=== PATIENT | female | born 1995 | race Hispanic/Latino ===

== ENCOUNTER 2023-05-20 07:27 | Emergency (ER) | payer OTHER ==
--- OUTSIDE RECORDS SUMMARY | 2023-05-20 07:37 | XMS REPORT | Continuity of Care Document ---
:1995 Author Organization [facility] t Address [address] [facility] [address] [place] [address] Care Team Providers Name Role Phone Pcp, Patient Does Not Have A Primary Care Physician +[phone] 00-0000 YRN SIMMONS Attending Clinician Unavailable Krystyna Vega RN Attending Clinician Unavailable Dalia Barbosa NP Attending Clinician Yrn Simmons MD Attending Clinician DALIA BARBOSA Attending Clinician Unavailable Doctor Unassigned, [facility] Attending Clinician Unavailable Yashira Ramires MD Attending Clinician Pob, [facility] Main Attending Clinician Unavailable 1, Lkj Nst Room Attending Clinician Unavailable Room, [facility] Nst Attending Clinician Unavailable Rahul Begum MD Attending Clinician RAHUL BEGUM Attending Clinician Unavailable RAHUL BEGUM Attending Clinician Unavailable Ultrasound, [facility] Attending Clinician Unavailable Chary Urban MD Attending Clinician CHARY URBAN Attending Clinician Unavailable Ultrasound, Sanam Quintero Attending Clinician Unavailable Inocencio Gtz DO Attending Clinician Riana Davalos RN Attending Clinician Unavailable Estela MARTINEZ Attending Clinician Unavailable Yrn Shaw MD Attending Clinician Mala PAC, K Keren Attending Clinician Manjula SOUZA, Pratima Attending Clinician Unavailable Roney Waggoner MD Attending Clinician RONEY WAGGONER Attending Clinician Unavailable Nurse, Ti[facility] Attending Clinician Unavailable 2, [facility] Attending Clinician Unavailable PREETI HARPER Attending Clinician Unavailable Preeti Hernandez Attending Clinician Bhavesh Young DO Attending Clinician [facility] Resident Attending Clinician Unavailable Chayo Dwyer MD Attending Clinician KHOI KAPOOR Attending Clinician Unavailable Mathew Welch Attending Clinician MATHEW SHIRLEY Attending Clinician Unavailable YRN SIMMONS Admitting Clinician Unavailable Yrn Simmons MD Admitting Clinician Payers Payer Name Policy Type Policy Number Effective Date Expiration Date S ource Problems Condition Condition Condition Status Onset Resolution Last Treating Co mments Source Name Details Category Date Date Treatment Clinician Date Current Current Disease Active Univers 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 00 Medical depressive depressive Br anch disorder disorder without without prior prior episode episode Liveborn Liveborn Disease Active Unive rs , of infant, of 1-05 [place] , , [place] born in born in [facility] by by delivery delivery Anemia, Anemia, Disease Active Univers antepartum antepartum 1-04 it y of , third , third 00:00: [place] trimester trimester 00 Medi radha [place] [facility] test Lab test Disease Active Unive rs positive positive 1-04 ity of for for 00:00: [place] detection detection 00 Medi radha of [facility] COVID-19 COVID-19 virus virus Excessive Excessive Disease Active Uni vers 1-04 ity of growth growth 00:00: [place] affecting affecting 00 Medi radha management management Br anch of of in third in third trimester trimester 35 weeks 35 weeks Disease Active 2021-11 Unive rs gestation gestation 2-19 ity of of of 00:00: [place] 00 [facility] 38 weeks 38 weeks Disease Active 2021-11 Unive rs gestation gestation 2-19 ity of of of 00:00: [place] 00 [facility] Eng[place] Eng[place] Disease Active 2021-11 U nivers t of t of 2-16 ity of breast, breast, 00:00: [place] antepartum antepartum 00 Me dical Branch Genital Genital Disease Active 2021-11 Univers herpes herpes 2-06 ity of simplex simplex 00:00: [place] virus virus 00 [facility] (HSV) (HSV) Branch infection infection in mother in mother affecting affecting 33 weeks 33 weeks Disease Active 2021-11 Unive rs gestation gestation 2-06 ity of of of 00:00: [place] 00 [facility] Dysuria Dysuria Disease Active 2021-11 Univers 0-07 ity of 00:00: [place] 00 [facility] Branch Vaginal Vaginal Disease Active 2021-11 Univers spotting spotting 0-07 ity of 00:00: [place] 00 Medical Branch Back pain Back pain Disease Active 2021-11 Uni vers affecting affecting 0-07 ity of , , [place]:00[place] antepartum antepartum [facility] High risk High risk Disease Active Uni vers , , 9-06 it y of antepartum antepartum 00[place] 00 [place] History of History of Disease Active U nivers depression depression 9-06 it y of 00:00: [place] 00 [facility] GDM, class GDM, class Disease Active U nivers A2 A2 8-12 ity of 00:00: [place] 00 [facility] Gestationa Gestationa Disease Active 2021- U nivers l diabetes l diabetes 8-12 it y of mellitus mellitus 00:00: [place] (GDM) (GDM) 00 Medical controlled controlled Br anch on oral on oral hypoglycem hypoglycem ic drug, ic drug, antepartum antepartum Nausea and Nausea and Disease Active 2021- U nivers vomiting vomiting 6-12 ity of in in 00:00: [place] 00 [facility] H/O: H/O: Disease Active Univers 6-12 ity of section section 00:00: [place] Medical Branch Obesity in Obesity in Disease Active U nivers 4-28 ity of 00:00: [place] 00 Medical Branch Screening Screening Disease Active Uni vers examinatio examinatio 4-28 it y of n for STD n for STD 00:00: [place] (sexually (sexually 00 Medi radha transmitte transmitte Br anch d disease) d disease) Family Family Disease Active Univers history of history of 4-28 it y of cervical cervical 00:00: [place] cancer cancer Medical [place] Elevated Elevated Disease Active Unive rs BP without BP without 8-18 it y of diagnosis diagnosis 00:00: [place] s of of 00 Medical hypertensi hypertensi Br anch on on Allergies, Adverse Reactions, Alerts Allergy Allergy Status Severity Reaction(s) Onset Inactive Treating Comm ents Source Name Type Date Date Clinician NO KNOWN Drug Active Univers ALLERGIE Class ity of S [facility] Social History Social Habit Start Date Stop Date Quantity Comments Source ASSERTION 2022-03-25 University of 00:00:00 [facility] History of Cigarette Smoker Universi ty of tobacco use [facility] Alcohol intake 2023-01-24 2023-01-24 Ex-drinker University 00:00:00 00:00:00 (finding) [facility] Exposure to 2023-01-12 2023-01-22 Not sure University SARS-CoV-2 00:00:00 09:01:00 [facility] (event) Branch Tobacco use and 2022-07-01 2022-07-01 Smokeless tobacco Un iversity of exposure 00:00:00 00:00:00 non-user [facility] Tobacco Comment 2022-07-01 2022-07-01 3-4 cigarrettes Univ ersity of 00:00:00 00:00:00 per week [facility] Alcohol Comment 2020-07-16 2020-07-16 social Universit y of 00:00:00 00:00:00 [place] [facility] History SDOH 2020-07-16 2020-07-16 99 University o f Alcohol Frequency 00:00:00 00:00:00 [facility] edical Branch History SDOH 2020-07-16 2020-07-16 99 University o f Alcohol Std 00:00:00 00:00:00 [place] Medical Drinks Branch History SDDE 2020-07-16 2020-07-16 99 University o f Alcohol Binge 00:00:00 00:00:00 [facility] Branch Sex Ass[birth year] At [birth year] Universit y of 00:00:00 00:00:00 [facility] Smoking Status Start Date Stop Date Source Ex-smoker 2022-07-01 00:00:00 2022-07-01 00:00:00 [facility] Medications Ordered Filled Start Stop Current Ordering Indication Dosage Frequency Signature Comments Components Source Medication Medication Date Date Medication? Clinician (SIG) Name Name fluvoxaMINE 0 Yes [id number] 25mg Take 1 Univers 25 mg 2-24 tablet by ity of tablet 00:00: mouth at [place] [address] bedtime. Medical Branch fluvoxaMINE 2022-0 Yes [id number] 25mg Take 1 Univers 25 mg 2-24 tablet by ity of tablet 00:00: mouth at [place] [address] bedtime. Medical Branch fluvoxaMINE 2022-0 Yes [id number] 25mg Take 1 Univers 25 mg 2-24 tablet by ity of tablet 00:00: mouth at [place] [address] bedtime. Medical Branch fluvoxaMINE 2022-0 Yes [id number] 25mg Take 1 Univers 25 mg 2-24 tablet by ity of tablet 00:00: mouth at [place] [address] bedtime. Medical Branch norethindro 2022-0 Yes [id number] 1{tbl} Take 1 Univers ne-ethinyl 2-15 tablet by ity of estradiol 00:00[place] (LOESTRIN 00 the Medical ,) morning. Branc h 1-20 mg-mcg per tablet norethindro 2022-0 Yes [id number] 1{tbl} Take 1 Univers ne-ethinyl 2-15 tablet by ity of estradiol 00:00: [place] ([place] 00 [facility] Medical ,) morning. Branc h 1-20 mg-mcg per tablet norethindro 2022-0 Yes [id number] 1{tbl} Take 1 Univers ne-ethinyl 2-15 tablet by ity of estradiol 00:00: [place] (LOESTRIN 00 [facility] Medical ,) morning. Branc h 1-20 mg-mcg per tablet norethindro 2022-0 Yes [id number] 1{tbl} Take 1 Univers ne-ethinyl 2-15 tablet by ity of estradiol 00:00: [place] (LOESTRIN [facility] ,) morning. Branc h 1-20 mg-mcg per tablet norethindro 2022-0 Yes [id number] 1{tbl} Take 1 Univers ne-ethinyl 2-15 tablet by ity of estradiol 00:00: [place] (LOESTRIN [facility] ,) morning. Branc h 1-20 mg-mcg per tablet fluvoxaMINE 0 Yes [id number] 25mg Take 1 Univers 25 mg 2-01 tablet by ity of tablet 00:00: mouth at [place] 00 bedtime. Medical Branch fluvoxaMINE 0 3- No [id number] 25mg Take 1 Univers 25 mg 2-01 02-24 tablet by ity of tablet 00:00: 00:00 mouth at [place] 00 :00 bedtime. Medical Branch fluvoxaMINE 0 3- No [id number] 25mg Take 1 Univers 25 mg 2-01 02-24 tablet by ity of tablet 00:00: 00:00 mouth at [place] 00 :00 bedtime. Medical Branch fluvoxaMINE 0 3- No [id number] 25mg Take 1 Univers 25 mg 2-01 02-24 tablet by ity of tablet 00:00: 00:00 mouth at [place] 00 :00 bedtime. Medical Branch FLUoxetine 0 Yes Take one Uni vers 20 mg 1-27 capsule by ity of capsule 00:00: mouth [place] 00 daily Medical Branch FLUoxetine 2022-0 Yes Take one Uni vers 20 mg 1-27 capsule by ity of capsule 00:00: mouth [place] 00 daily Medical Branch FLUoxetine 0 Yes Take one Uni vers 20 mg 1-27 capsule by ity of capsule 00:00: mouth [place] 00 daily Medical Branch FLUoxetine 0 2022- No Take one Un good 20 mg 1-27 02-01 capsule by ity of capsule 00:00: 00:00 mouth [place] 00 :00 daily Medical Branch ibuprofen 2022-0 Yes 600mg 600 mg, Univ ers (IBU) 1-06 Oral, Q6H ity of tablet 600 18:17: ABX, First [place] mg 34 dose Medical (after Branch last modificati on) on Wed12/04/22 at 1230, Until Discontinu ed, Routine ibuprofen 3-0 Yes 600mg 600 mg, Univ ers (IBU) 1-06 Oral, Q6H ity of tablet 600 18:17: ABX, First [place] mg 34 dose Medical (after Branch last modificati on) on Wed12/04/22 at 1230, Until Discontinu ed, Routine ferrous 2022-0 Yes 325mg 325 mg, Univer s sulfate -06 Oral, BID, ity of tablet 325 14:00: First dose [place] mg 00 on Wed Medical 12/04/22 at Branch 0800, Until Discontinu ed, Routine ferrous 3-0 Yes 325mg 325 mg, Univer s sulfate -06 Oral, BID, ity of tablet 325 14:00: First dose [place] mg 00 on Wed Medical 12/04/22 at Branch 0800, Until Discontinu ed, Routine ketorolac 2022-0 2023- No 30mg 30 mg, Unive rs (TORADOL) 12-04 01-06 Slow IV ity of injection 06:00: 18:17 [place], Q6H [place] 30 mg 00 :58 ABX, 4 Medical doses, Branch First dose on Wed12/04/22 at 0000, Last dose on Wed12/04/22 at 1800, Routine acetaminoph 3-0 Yes 650mg 650 mg, Un good en 1-06 Oral, Q6H ity of (TYLENOL) 03:45: ABX, First [place] tablet 650 00 dose on Medica l mg [facility] 12/03/22 Branch at 2145, Until Discontinu ed, Routine acetaminoph 2023-0 Yes 650mg 650 mg, Un good en 1-06 Oral, Q6H ity of (TYLENOL) 03:45: ABX, First [place] tablet 650 00 dose on Medica l mg [facility] 12/03/22 Branch at 2145, Until Discontinu ed, Routine acetaminoph 2023-0 Yes [id number] 650mg Take 2 Univers en 325 mg 1-06 tablets by ity of tablet 00:00: mouth [place] 00 every 6 Medical (six) Branch hours as needed for Pain (scale 1-3) or Pain (scale 4-6). HYDROcodone 2022-0 Yes [id number] 1{tbl} Take 1 Un good -acetaminop 1-06 tablet by ity of hen 5-325 00:00: mouth [place] mg tablet 00 every 6 Medical (six) Branch hours as needed for Pain (scale 7-10) (Alternate with Ibuprofen) . Indication s: acute pain gabapentin 2022-0 Yes [id number] 300mg Take 1 Univers 300 mg 1-06 capsule by ity of capsule 00:00: mouth in [place] 00 the Medical morning Branch and 1 capsule at noon and 1 capsule in the evening. docusate 2022-0 Yes [id number] 200mg Take 2 Un good 100 mg 1-06 capsules ity of capsule 00:00: by mouth [place] 00 once daily Medical as needed Branch for Constipati on. ferrous 2022-0 Yes [id number] 325mg Take 1 Uni vers sulfate 325 1-06 tablet by ity of mg (65 mg 00:00: mouth in [facility] s iron) 00 the Medical tablet morning Branch and 1 tablet in the evening. ibuprofen 2022-0 Yes [id number] 600mg Take 1 U nivers 600 mg 1-06 tablet by ity of tablet 00:00: mouth [place] 00 every 6 Medical (six) Branch hours as needed (Pain). Take with food or milk. 2022-0 Yes [id number] 1{tbl} Take 1 U nivers vitamin 1-06 tablet by ity of w/FA tablet 00:00: mouth in [place] 00 the Medical morning. Branch acetaminoph 2022-0 Yes [id number] 650mg Take 2 Univers en 325 mg 1-06 tablets by ity of tablet 00:00: mouth [place] 00 every 6 Medical (six) Branch hours as needed for Pain (scale 1-3) or Pain (scale 4-6). HYDROcodone 2022-0 Yes [id number] 1{tbl} Take 1 Un good -acetaminop 1-06 tablet by ity of hen 5-325 00:00: mouth [place] mg tablet 00 every 6 Medical (six) Branch hours as needed for Pain (scale 7-10) (Alternate with Ibuprofen) . Indication s: acute pain gabapentin 2022-0 Yes [id number] 300mg Take 1 Univers 300 mg 1-06 capsule by ity of capsule 00:00: mouth in [place] 00 the Medical morning Branch and 1 capsule at noon and 1 capsule in the evening. docusate 202-0 Yes [id number] 200mg Take 2 Un good 100 mg 1-06 capsules ity of capsule 00:00: by mouth [place] 00 once daily Medical as needed Branch for Constipati on. ferrous 2022-0 Yes [id number] 325mg Take 1 Uni vers sulfate 325 1-06 tablet by ity of mg (65 mg 00:00: mouth in [facility] [place]) 00 the Medical tablet morning Branch and 1 tablet in the evening. ibuprofen 2022-0 Yes [id number] 600mg Take 1 U nivers 600 mg 1-06 tablet by ity of tablet 00:00: mouth [place] 00 every 6 Medical (six) Branch hours as needed (Pain). Take with food or milk. 2022-0 Yes [id number] 1{tbl} Take 1 U nivers vitamin 1-06 tablet by ity of w/FA tablet 00:00: mouth in [facility] 00 the Medical morning. Branch acetaminoph 2022-0 Yes [id number] 650mg Take 2 Univers en 325 mg 1-06 tablets by ity of tablet 00:00: mouth [place] 00 every 6 Medical (six) Branch hours as needed for Pain (scale 1-3) or Pain (scale 4-6). HYDROcodone 2022-0 Yes [id number] 1{tbl} Take 1 Un good -acetaminop 1-06 tablet by ity of hen 5-325 00:00: mouth [place] mg tablet 00 every 6 Medical (six) Branch hours as needed for Pain (scale 7-10) (Alternate with Ibuprofen) . Indication s: acute pain gabapentin 2022-0 Yes [id number] 300mg Take 1 Univers 300 mg 1-06 capsule by ity of capsule 00:00: mouth in [place] 00 the Medical morning Branch and 1 capsule at noon and 1 capsule in the evening. docusate 2022-0 Yes [id number] 200mg Take 2 Un good 100 mg 1-06 capsules ity of capsule 00:00: by mouth [place] 00 once daily Medical as needed Branch for Constipati on. ferrous 2022-0 Yes [id number] 325mg Take 1 Uni vers sulfate 325 1-06 tablet by ity of mg (65 mg 00:00: mouth in [facility] [place]) 00 the Medical tablet morning Branch and 1 tablet in the evening. ibuprofen 2022-0 Yes [id number] 600mg Take 1 U nivers 600 mg 1-06 tablet by ity of tablet 00:00: mouth [place] 00 every 6 Medical (six) Branch hours as needed (Pain). Take with food or milk. 2022-0 Yes [id number] 1{tbl} Take 1 U nivers vitamin 1-06 tablet by ity of w/FA tablet 00:00: mouth in [place] 00 the Medical morning. Branch acetaminoph 2022-0 Yes [id number] 650mg Take 2 Univers en 325 mg 1-06 tablets by ity of tablet 00:00: mouth [place] 00 every 6 Medical (six) Branch hours as needed for Pain (scale 1-3) or Pain (scale 4-6). HYDROcodone 2022-0 Yes [id number] 1{tbl} Take 1 Un good -acetaminop 1-06 tablet by ity of hen 5-325 00:00: mouth [place] mg tablet 00 every 6 Medical (six) Branch hours as needed for Pain (scale 7-10) (Alternate with Ibuprofen) . Indication s: acute pain gabapentin 2022-0 Yes [id number] 300mg Take 1 Univers 300 mg 1-06 capsule by ity of capsule 00:00: mouth in [place] 00 the Medical morning Branch and 1 capsule at noon and 1 capsule in the evening. docusate 2022-0 Yes [id number] 200mg Take 2 Un good 100 mg 1-06 capsules ity of capsule 00:00: by mouth [place] 00 once daily Medical as needed Branch for Constipati on. ferrous 2022-0 Yes [id number] 325mg Take 1 Uni vers sulfate 325 1-06 tablet by ity of mg (65 mg 00:00: [place] iron[place] 00 the Medical tablet morning Branch and 1 tablet in the evening. ibuprofen 2022-0 Yes [id number] 600mg Take 1 U nivers 600 mg 1-06 tablet by ity of tablet 00:00: mouth [place] 00 every 6 Medical (six) Branch hours as needed (Pain). Take with food or milk. 2022-0 Yes [id number] 1{tbl} Take 1 U nivers vitamin 1-06 tablet by ity of w/FA tablet 00:00: mouth in [place] 00 the Medical morning. Branch docusate 2022-0 Yes [id number] 200mg Take 2 Un good 100 mg 1-06 capsules ity of capsule 00:00: by mouth [place] 00 once daily Medical as needed Branch for Constipati on. ferrous 2022-0 Yes [id number] 325mg Take 1 Uni vers sulfate 325 1-06 tablet by ity of mg (65 mg 00:00: [place] iron[place] 00 the Medical tablet morning Branch and 1 tablet in the evening. ibuprofen 2022-0 Yes [id number] 600mg Take 1 U nivers 600 mg 1-06 tablet by ity of tablet 00:00: mouth [place] 00 every 6 Medical (six) Branch hours as needed (Pain). Take with food or milk. 2022-0 Yes [id number] 1{tbl} Take 1 U nivers vitamin 1-06 tablet by ity of w/FA tablet 00:00: mouth in [place] 00 the Medical morning. Branch docusate 2022-0 Yes [id number] 200mg Take 2 Un good 100 mg 1-06 capsules ity of capsule 00:00: by mouth [place] 00 once daily Medical as needed Branch for Constipati on. ferrous 2022-0 Yes [id number] 325mg Take 1 Uni vers sulfate 325 1-06 tablet by ity of mg (65 mg 00:00: [place] iron) 00 the Medical tablet morning Branch and 1 tablet in the evening. ibuprofen 2022-0 Yes [id number] 600mg Take 1 U nivers 600 mg 1-06 tablet by ity of tablet 00:00: mouth [place] 00 every 6 Medical (six) Branch hours as needed (Pain). Take with food or milk. 2022-0 Yes [id number] 1{tbl} Take 1 U nivers vitamin 1-06 tablet by ity of w/FA tablet 00:00: mouth in [place] 00 the Medical morning. Branch docusate 2022-0 Yes [id number] 200mg Take 2 Un good 100 mg 1-06 capsules ity of capsule 00:00: by mouth [place] 00 once daily Medical as needed Branch for Constipati on. ferrous 2022-0 Yes [id number] 325mg Take 1 Uni vers sulfate 325 1-06 tablet by ity of mg (65 mg 00:00: [place] iron) 00 the Medical tablet morning Branch and 1 tablet in the evening. ibuprofen 2022-0 Yes [id number] 600mg Take 1 U nivers 600 mg 1-06 tablet by ity of tablet 00:00: mouth [place] 00 every 6 Medical (six) Branch hours as needed (Pain). Take with food or milk. 2022-0 Yes [id number] 1{tbl} Take 1 U nivers vitamin 1-06 tablet by ity of w/FA tablet 00:00: mouth in [place] 00 the Medical morning. Branch docusate 2022-0 Yes [id number] 200mg Take 2 Un good 100 mg 1-06 capsules ity of capsule 00:00: by mouth [place] 00 once daily Medical as needed Branch for Constipati on. ferrous 2022-0 Yes [id number] 325mg Take 1 Uni vers sulfate 325 1-06 tablet by ity of mg (65 mg 00:00: [place] iron) 00 the Medical tablet morning Branch and 1 tablet in the evening. ibuprofen 2022-0 Yes [id number] 600mg Take 1 U nivers 600 mg 1-06 tablet by ity of tablet 00:00: mouth [place] 00 every 6 Medical (six) Branch hours as needed (Pain). Take with food or milk. 2022-0 Yes [id number] 1{tbl} Take 1 U nivers vitamin 1-06 tablet by ity of w/FA tablet 00:00: mouth in [place] 00 the Medical morning. Branch docusate 2022-0 Yes [id number] 200mg Take 2 Un good 100 mg 1-06 capsules ity of capsule 00:00: by mouth [place] 00 once daily Medical as needed Branch for Constipati on. ferrous 2022-0 Yes [id number] 325mg Take 1 Uni vers sulfate 325 1-06 tablet by ity of mg (65 mg 00:00: [place] iron[place] 00 the Medical tablet morning Branch and 1 tablet in the evening. ibuprofen 2022-0 Yes [id number] 600mg Take 1 U nivers 600 mg 1-06 tablet by ity of tablet 00:00: mouth [place] 00 every 6 Medical (six) Branch hours as needed (Pain). Take with food or milk. 2022-0 Yes [id number] 1{tbl} Take 1 U nivers vitamin 1-06 tablet by ity of w/FA tablet 00:00: mouth in [place] 00 the Medical morning. Branch ferrous 2022-0 Yes [id number] 325mg Take 1 Uni vers sulfate 325 1-06 tablet by ity of mg (65 mg 00:00: [place] iron[place] 00 the Medical tablet morning Branch and 1 tablet in the evening. 2022-0 Yes [id number] 1{tbl} Take 1 U nivers vitamin 1-06 tablet by ity of w/FA tablet 00:00: mouth in [place] 00 the Medical morning. Branch ferrous 2022-0 Yes [id number] 325mg Take 1 Uni vers sulfate 325 1-06 tablet by ity of mg (65 mg 00:00: [place] iron[place] 00 the Medical tablet morning Branch and 1 tablet in the evening. 2022-0 Yes [id number] 1{tbl} Take 1 U nivers vitamin 1-06 tablet by ity of w/FA tablet 00:00: mouth in [place] 00 the Medical morning. Branch ferrous 2022-0 Yes [id number] 325mg Take 1 Uni vers sulfate 325 1-06 tablet by ity of mg (65 mg 00:00: [place] iron[place] 00 the Medical tablet morning Branch and 1 tablet in the evening. 2022-0 Yes [id number] 1{tbl} Take 1 U nivers vitamin 1-06 tablet by ity of w/FA tablet 00:00: mouth in [place] 00 the Medical morning. Branch ferrous 2022-0 Yes [id number] 325mg Take 1 Uni vers sulfate 325 1-06 tablet by ity of mg (65 mg 00:00: [place] iron[place] 00 the Medical tablet morning Branch and 1 tablet in the evening. 2022-0 Yes [id number] 1{tbl} Take 1 U nivers vitamin 1-06 tablet by ity of w/FA tablet 00:00: mouth in [place] 00 the Medical morning. Branch ferrous 2022-0 Yes [id number] 325mg Take 1 Uni vers sulfate 325 1-06 tablet by ity of mg (65 mg 00:00: [place] iron[place] 00 the Medical tablet morning Branch and 1 tablet in the evening. 2022-0 Yes [id number] 1{tbl} Take 1 U nivers vitamin 1-06 tablet by ity of w/FA tablet 00:00: mouth in [place] 00 the Medical morning. Branch docusate 2022- No [id number] 200mg Take 2 U nivers 100 mg 12-04-24 capsules ity of capsule 00:00: 00:00 by mouth [place] 00 :00 once daily Medical as needed Branch for Constipati on. ibuprofen 2022- No [id number] 600mg Take 1 Univers 600 mg 12-0424 tablet by ity of tablet 00:00: 00:00 mouth [place] 00 :00 every 6 Medical (six) Branch hours as needed (Pain). Take with food or milk. docusate 2022- No [id number] 200mg Take 2 U nivers 100 mg 12-0424 capsules ity of capsule 00:00: 00:00 by mouth [place] 00 :00 once daily Medical as needed Branch for Constipati on. ibuprofen No [id number] 600mg Take 1 Univers 600 mg 12-0424 tablet by ity of tablet 00:00: 00:00 mouth [place] 00 :00 every 6 Medical (six) Branch hours as needed (Pain). Take with food or milk. docusate 2022- No [id number] 200mg Take 2 U nivers 100 mg 12-0424 capsules ity of capsule 00:00: 00:00 by mouth [place] 00 :00 once daily Medical as needed Branch for Constipati on. ibuprofen 2022- No [id number] 600mg Take 1 Univers 600 mg 12-0424 tablet by ity of tablet 00:00: 00:00 mouth [place] 00 :00 every 6 Medical (six) Branch hours as needed (Pain). Take with food or milk. acetaminoph 2022- No [id number] 650mg Take 2 Univers en 325 mg 12-04 tablets by ity of tablet 00:00: 00:00 mouth [place] 00 :00 every 6 Medical (six) Branch hours as needed for Pain (scale 1-3) or Pain (scale 4-6). HYDROcodone 2022- No [id number] 1{tbl} Take 1 U nivers -acetaminop 12-04 tablet by it y of hen 5-325 00:00: 00:00 mouth [place] mg tablet 00 :00 every 6 Medical (six) Branch hours as needed for Pain (scale 7-10) (Alternate with Ibuprofen) . Indication s: acute pain gabapentin 2023-0 3- No [id number] 300mg Take 1 [facility] 300 mg 12-04 capsule by ity of capsule 00:00: 00:00 mouth in [place] 00 :00 the Medical morning Branch and 1 capsule at noon and 1 capsule in the evening. acetaminoph 2023-0 3- No [id number] 650mg Take 2 [facility] en 325 mg 12-04 tablets by ity of tablet 00:00: 00:00 mouth [place] 00 :00 every 6 Medical (six) Branch hours as needed for Pain (scale 1-3) or Pain (scale 4-6). HYDROcodone 2022-0 2022- No [id number] 1{tbl} Take 1 U nivers -acetaminop 12-04 tablet by it y of hen 5-325 00:00: 00:00 mouth [place] mg tablet 00 :00 every 6 Medical (six) Branch hours as needed for Pain (scale 7-10) (Alternate with Ibuprofen) . Indication s: acute pain gabapentin 2022-0 2022- No [id number] 300mg Take 1 [facility] 300 mg 12-04 capsule by ity of capsule 00:00: 00:00 mouth in [place] 00 :00 the Medical morning Branch and 1 capsule at noon and 1 capsule in the evening. gabapentin 2022-0 3- No [id number] 300mg Take 1 [facility] 300 mg 12-04 capsule by ity of capsule 00:00: 00:00 mouth in [place] 00 :00 the Medical morning Branch and 1 capsule at noon and 1 capsule in the evening. Do all this for 5 days. HYDROcodone 2022-0 3- No [id number] 1{tbl} Take 1 U nivers -acetaminop 12-04 tablet by it y of hen 5-325 00:00: 00:00 mouth [place] mg tablet 00 :00 every 6 Medical (six) Branch hours as needed for Pain (scale 7-10) (Alternate with Ibuprofen) for up to 7 days. Indication s: acute pain 2023-0 2023- No [id number] 1{tbl} Take 1 [facility] vitamin 12-04 tablet by ity of w/FA tablet 00:00: 00:00 mouth in [place] 00 :00 the Medical morning. Branch docusate 2022- No [id number] 200mg Take 2 U nivers 100 mg 12-04 capsules ity of capsule 00:00: 00:00 by mouth [place] 00 :00 once daily Medical as needed Branch for Constipati on. ferrous 2022-0 2022- No [id number] 325mg Take 1 Un good sulfate 325 12-04 tablet by it y of mg (65 mg 00:00: 00:00 mouth in [place] as iron) 00 :00 the Medical tablet morning Branch and 1 tablet in the evening. ibuprofen 0 2022- No [id number] 600mg Take 1 [facility] 600 mg 12-04 tablet by ity of tablet 00:00: 00:00 mouth [place] 00 :00 every 6 Medical (six) Branch hours as needed (Pain). Take with food or milk. gabapentin Yes 300mg 300 mg, Uni vers (NEURONTIN) 1-05 Oral, TID, it y of capsule 300 20:00: First dose [place] mg 00 on [facility] 12/03/22 at Branch 1400, Until Discontinu ed, Routine gabapentin Yes 300mg 300 mg, Uni vers (NEURONTIN) 1-05 Oral, TID, it y of capsule 300 20:00: First dose [place] mg 00 on [facility] 12/03/22 at Branch 1400, Until Discontinu ed, Routine lactated 0 2022- No 1000mL at 125 Univ ers ringers IV 12-03 01-05 mL/hr, ity of infusion 16:00: 19:06 1,000 mL, [place] as 1,000 mL 00 :41 IV Medical Infusion, Branch ONCE, 1 dose, On [facility] 12/03/22 at 1000, Routine rho(D) Yes 300ug 300 mcg, Univer s immune 1-05 Intramuscu ity of globulin 15:57: lar, ONCE, [place] as (RHOGAM) 26 For 1 Medical syringe 300 dose, Branch mcg Conditiona l, Routine rho(D) 0 Yes 300ug 300 mcg, Univer s immune 1-05 Intramuscu ity of globulin 15:57: lar, ONCE, [place] as (RHOGAM) 26 For 1 Medical syringe 300 dose, Branch mcg Conditiona l, Routine HYDROcodone 2023-0 Yes 1{tbl} 1 tablet, Univers -acetaminop 1-05 Oral, ity of hen (NORCO 15:57: Q6HPRN, [place] 5) 5-325 mg 21 Starting Medi radha tablet 1 on [facility] Branch tablet 12/03/22 at 0957, Until Discontinu ed, Routine, Pain (scale 7-10), Alternate with Ibuprofen diphenhydrA 2023-0 Yes 25mg 25 mg, Univ ers MINE 1-05 Slow IV ity of (BENADRYL) 15:57: Push, [place] injection 21 Q6HPRN, Medical 25 mg Starting Branch on [facility] 12/03/22 at 0957, Until Discontinu ed, Routine, Itching diphenhydrA 3-0 Yes 25mg 25 mg, Univ ers MINE 105 Oral, ity of (BENADRYL) 15:57: Q6HPRN, [place] tablet 25 21 Starting Medica l mg on [facility] Branch 12/03/22 at 0957, Until Discontinu ed, Routine, Sleep, Itching ondansetron 3-0 Yes 4mg 4 mg, Slow Univers (ZOFRAN 05 IV Push, ity of (PF)) 15:57: Q8HPRN, [place] injection 4 21 Starting Medi radha mg on [facility] Branch 12/03/22 at 0957, Until Discontinu ed, Routine, Nausea and Vomiting (N/V) bisacodyL 2022-0 Yes 10mg 10 mg, Univer s (DULCOLAX) 05 Rectal, ity of suppository 15:57: QDAILYPRN, [place] 10 mg 21 Starting Medical on [facility] Branch 12/03/22 at 0957, Until Discontinu ed, Routine, Constipati on simethicone 2023-0 Yes 160mg 160 mg, Un good (GAS RELIEF 1-05 Oral, ity of (SIMETHICON 15:57: PC+HSPRN, [place] E)) 21 Starting Medical chewable on [facility] Branch tablet 160 12/03/22 at mg 0957, Until Discontinu ed, Routine, Gas docusate 2023-0 Yes 200mg 200 mg, Unive rs (COLACE) 1-05 Oral, ity of capsule 200 15:57: QDAILYPRN, [place] mg 21 Starting Medical on [facility] Branch 12/03/22 at 0957, Until Discontinu ed, Routine, Constipati on HYDROcodone 202-0 Yes 1{tbl} 1 tablet, Univers -acetaminop 1-05 Oral, ity of hen (NORCO 15:57: Q6HPRN, [place] 5) 5-325 mg 21 Starting Medi radha tablet 1 on [facility] Branch tablet 12/03/22 at 0957, Until Discontinu ed, Routine, Pain (scale 7-10), Alternate with Ibuprofen diphenhydrA 2023-0 Yes 25mg 25 mg, Univ ers MINE 1-05 Slow IV ity of (BENADRYL) 15:57: Push, [place] injection 21 Q6HPRN, Medical 25 mg Starting Branch on [facility] 12/03/22 at 0957, Until Discontinu ed, Routine, Itching diphenhydrA 2023-0 Yes 25mg 25 mg, Univ ers MINE 1-05 Oral, ity of (BENADRYL) 15:57: Q6HPRN, [place] tablet 25 21 Starting Medica l mg on [facility] Branch 12/03/22 at 0957, Until Discontinu ed, Routine, Sleep, Itching ondansetron 2022-0 Yes 4mg 4 mg, Slow Univers (ZOFRAN 1-05 IV Push, ity of (PF)) 15:57: Q8HPRN, [place] injection 4 21 Starting Medi radha mg on [facility] Branch 12/03/22 at 0957, Until Discontinu ed, Routine, Nausea and Vomiting (N/V) bisacodyL 2022-0 Yes 10mg 10 mg, Univer s (DULCOLAX) 1-05 Rectal, ity of suppository 15:57: QDAILYPRN, [place] 10 mg 21 Starting Medical on [facility] Branch 12/03/22 at 0957, Until Discontinu ed, Routine, Constipati on simethicone 2023-0 Yes 160mg 160 mg, Un good (GAS RELIEF 1-05 Oral, ity of (SIMETHICON 15:57: PC+HSPRN, [place] E)) 21 Starting Medical chewable on [facility] Branch tablet 160 12/03/22 at mg 0957, Until Discontinu ed, Routine, Gas docusate 2022-0 Yes 200mg 200 mg, Unive rs (COLACE) 1-05 Oral, ity of capsule 200 15:57: QDAILYPRN, [place] mg 21 Starting Medical on [facility] 12/03/22 at 0957, Until Discontinu ed, Routine, Constipati on magnesium 2022-0 Yes 30mL 30 mL, Univer s hydroxide 1-05 Oral, ity of (MILK OF 15:57: QDAILYPRN, [place] as MAGNESIA) 20 Starting Medica l 400 mg/5 mL on [facility] suspension 12/03/22 at 30 mL 0957, Until Discontinu ed, Routine, Constipati on lactated 2022-0 Yes 1000mL at 125 Unive rs ringers IV 1-05 mL/hr, ity of infusion 15:57: 1,000 mL, [place] 1,000 mL 20 IV Medical Infusion, Branch PRN, 1 dose, Starting on [facility] 12/03/22 at 0957, Until Discontinu ed, Routine magnesium 2022-0 Yes 30mL 30 mL, Univer s hydroxide 1-05 Oral, ity of (MILK OF 15:57: QDAILYPRN, [place] MAGNESIA) 20 Starting Medica l 400 mg/5 mL on [facility] Branch suspension 12/03/22 at 30 mL 0957, Until Discontinu ed, Routine, Constipati on lactated 3-0 Yes 1000mL at 125 Unive rs ringers IV 1-05 mL/hr, ity of infusion 15:57: 1,000 mL, [place] 1,000 mL 20 IV Medical Infusion, Branch PRN, 1 dose, Starting on [facility] 12/03/22 at 0957, Until Discontinu ed, Routine sodium 2022-0 Yes PRN, Univers chloride 1-05 Starting ity of 0.9 % 14:34: on [facility] [place] irrigation 00 12/03/22 at [facility] radha solution 0834, Branch Until Discontinu ed, Intra-op mupirocin 2022-0 Yes Intra-op Univ ers (BACTROBAN -05 ity of OINT) 2 % 14:34: [place] skin 00 Medical ointment Branch sodium 2022-0 Yes PRN, Univers chloride 1-05 Starting ity of 0.9 % 14:34: on [facility] [place] irrigation 00 12/03/22 at [facility] radha solution 0834, Branch Until Discontinu ed, Intra-op mupirocin Yes Intra-op Univ ers (BACTROBAN 12-03 ity of OINT) 2 % 14:34: [place] skin 00 Medical ointment Branch ondansetron 2022- No Slow IV Un good (ZOFRAN 12-03 Push, ONCE ity o f (PF)) 14:14: 14:50 INTRA [place] injection 00 :35 PROCEDURE, Medi radha Starting Branch on [facility] 12/03/22 at 0814, Until [facility] 12/03/22 at 0850, Routine, Intra-op LR 1000 mL 2022- No IV Univer s + oxytocin 12-03 Infusion, ity of 40 units 40 14:10: 14:50 CONTINUOUS [place] unit/ 1,000 00 :35 PRN, Medical mL IV Starting Branch Solution on [facility] 12/03/22 at 0810, Until [facility] 12/03/22 at 0850, Routine, Intra-op ePHEDrine 2022- No Intravenou U nivers 25 mg/5 mL 12-03 s, ONCE ity o f (5 mg/mL) 13:44: 14:50 INTRA [place] syringe 00 :35 PROCEDURE, Medica l Starting Branch on [facility] 12/03/22 at 0744, Until [facility] 12/03/22 at 0850, Routine, Intra-op morpHINE PF 2022- No Intratheca Univers (DURAMORPH- 12-03 l, ONCE ity of PF) 13:41: 13:07 INTRA [place] injection 00 :57 PROCEDURE, Medi radha Starting Branch on [facility] 12/03/22 at 0741, Until 12/04/22 at 0707, Routine, Intra-op bupivacaine 2022- No Intraspina Univers -dextrose-w 12-03 l, ONCE ity of ater-pf 13:41: 14:50 INTRA [place] (MARCAINE 00 :35 PROCEDURE, [facility] radha SPINAL Starting Branch (PF)) 0.75 on [facility] % (7.5 12/03/22 at mg/mL) 0741, injection Until [facility] 1/5/23 at 0850, Routine, Intra-op lidocaine Infiltrati U nivers 1% 12-03 on, ONCE ity of (XYLOCAINE) 13:39: 14:50 INTRA [place] 100 mg/10 00 :35 PROCEDURE, Medi radha mL (1 %) Starting Branch injection on [facility] 12/03/22 at 0739, Until [facility] 12/03/22 at 0850, Routine, Intra-op ceFAZolin IV Univers (ANCEF) 12-03 Piggyback, ity o f injection 13:36: 14:50 ONCE INTRA [place] 00 :35 PROCEDURE, Medical Starting Branch on [facility] 12/03/22 at 0736, Until [facility] 12/03/22 at 0850, GELY, Intra-op lactated IV Univers ringers IV 12-03 Infusion, ity of infusion 13:34: 14:50 CONTINUOUS [place] 00 :35 PRN, Medical Starting Branch on [facility] 12/03/22 at 0734, Until [facility] 12/03/22 at 0850, Routine, Intra-op sodium No 30mL 30 mL, Univers citrate-cit 12-03 Oral, ity of timmy acid 11:24: 13:30 PRE-PROCED [place] (BICITRA) 40 :00 URE ONCE, Medic al 500-334 1 dose, Branch mg/5 mL Starting solution 30 on [facility] mL 12/03/22 at 0524, Until Discontinu ed, Routine, Surgery/Pr ocedure valACYclovi 2021-11 No [id number] 500mg Take 1 Univers r (VALTREX) 01-14 tablet by it y of 500 mg 00:00: 05:59 mouth in [place] tablet 00 :00 the Medical morning Branch and 1 tablet in the evening. Do all this for 60 days. valACYclovi 2021-11 No [id number] 500mg Take 1 Univers r (VALTREX) 01-14 tablet by it y of 500 mg 00:00: 05:59 mouth in [place] tablet 00 :00 the Medical morning Branch and 1 tablet in the evening. Do all this for 60 days. valACYclovi 2021-11- No [id number] 500mg Take 1 Univers r (VALTREX) 2-16 02-15 tablet by it y of 500 mg 00:00: 05:59 mouth in [place] tablet 00 :00 the Medical morning Branch and 1 tablet in the evening. Do all this for 60 days. valACYclovi 2021-11- No [id number] 500mg Take 1 Univers r (VALTREX) 2-16 02-15 tablet by it y of 500 mg 00:00: 05:59 mouth in [place] tablet 00 :00 the Medical morning Branch and 1 tablet in the evening. Do all this for 60 days. valACYclovi 2021-11- No [id number] 500mg Take 1 Univers r (VALTREX) 2-16 02-15 tablet by it y of 500 mg 00:00: 05:59 mouth in [place] tablet 00 :00 the Medical morning Branch and 1 tablet in the evening. Do all this for 60 days. valACYclovi 2021-11- No [id number] 500mg Take 1 Univers r (VALTREX) 2-16 02-15 tablet by it y of 500 mg 00:00: 05:59 mouth in [place] tablet 00 :00 the Medical morning Branch and 1 tablet in the evening. Do all this for 60 days. valACYclovi 2021-11- No [id number] 500mg Take 1 Univers r (VALTREX) 2-16 02-15 tablet by it y of 500 mg 00:00: 05:59 mouth in [place] tablet 00 :00 the Medical morning Branch and 1 tablet in the evening. Do all this for 60 days. valACYclovi 2021-11- No [id number] 500mg Take 1 Univers r (VALTREX) 2-16 02-15 tablet by it y of 500 mg 00:00: 05:59 mouth in [place] tablet 00 :00 the Medical morning Branch and 1 tablet in the evening. Do all this for 60 days. valACYclovi 2021-11- No [id number] 500mg Take 1 Univers r (VALTREX) 2-16 02-15 tablet by it y of 500 mg 00:00: 05:59 mouth in [place] tablet 00 :00 the Medical morning Branch and 1 tablet in the evening. Do all this for 60 days. valACYclovi 2021-11- No [id number] 500mg Take 1 Univers r (VALTREX) 2-16 02-15 tablet by it y of 500 mg 00:00: 05:59 mouth in [place] tablet 00 :00 the Medical morning Branch and 1 tablet in the evening. Do all this for 60 days. valACYclovi 2021-11- No [id number] 500mg Take 1 Univers r (VALTREX) 2-16 -15 tablet by it y of 500 mg 00:00: 05:59 mouth in [place] tablet 00 :00 the Medical morning Branch and 1 tablet in the evening. Do all this for 60 days. valACYclovi 2021-11- No [id number] 500mg Take 1 Univers r (VALTREX) 01-14 tablet by it y of 500 mg 00:00: 05:59 mouth in [place] tablet 00 :00 the Medical morning Branch and 1 tablet in the evening. Do all this for 60 days. valACYclovi 2021-11- No [id number] 500mg Take 1 Univers r (VALTREX) 01-14 tablet by it y of 500 mg 00:00: 05:59 mouth in [place] tablet 00 :00 the Medical morning Branch and 1 tablet in the evening. Do all this for 60 days. valACYclovi 2021-11- No [id number] 500mg Take 1 Univers r (VALTREX) 16 01-13 tablet by it y of 500 mg 00:00: 05:59 mouth in [place] tablet 00 :00 the Medical morning Branch and 1 tablet in the evening. Do all this for 60 days. valACYclovi 2021-11- No [id number] 500mg Take 1 Univers r (VALTREX) -12-04 tablet by it y of 500 mg 00:00: 00:00 mouth in [place] tablet 00 :00 the Medical morning Branch and 1 tablet in the evening. Do all this for 60 days. dicloxacill 2021-11- No [id number] 500mg Take 1 Univers in 500 mg 2-16 -27 capsule by ity of capsule 00:00: 05:59 mouth 4 [place] 00 :00 (four) Medical times [place] daily for 10 days. dicloxacill 2021-112- No [id number] 500mg Take 1 Univers in 500 mg 2-16 12-27 capsule by ity of capsule 00:00: 05:59 mouth 4 [place] 00 :00 (four) Medical times [place] daily for 10 days. ferrous 2021-11 Yes [id number] 325mg Take 1 Un good sulfate 2-06 tablet by ity of (IRON, 00:00: mouth in [place] FERROUS 00 the Medical SULFATE,) morning Branch 325 mg (65 and 1 mg iron) tablet in tablet the evening. ferrous 2021-11 Yes [id number] 325mg Take 1 Un good sulfate 2-06 tablet by ity of (IRON, 00:00: mouth in [place] FERROUS 00 the Medical SULFATE,) morning Branch 325 mg (65 and 1 mg iron) tablet in tablet the evening. ferrous 2021-11 Yes [id number] 325mg Take 1 Un good sulfate 2-06 tablet by ity of (IRON, 00:00: mouth in [place] FERROUS 00 the Medical SULFATE,) morning Branch 325 mg (65 and 1 mg iron) tablet in tablet the evening. ferrous 2021-11 Yes [id number] 325mg Take 1 Un good sulfate 2-06 tablet by ity of (IRON, 00:00: mouth in [place] FERROUS 00 the Medical SULFATE,) morning Branch 325 mg (65 and 1 mg iron) tablet in tablet the evening. ferrous 2021-11 Yes [id number] 325mg Take 1 Un good sulfate 2-06 tablet by ity of (IRON, 00:00: mouth in [place] FERROUS 00 the Medical SULFATE,) morning Branch 325 mg (65 and 1 mg iron) tablet in tablet the evening. ferrous 2021-11 Yes [id number] 325mg Take 1 Un good sulfate 2-06 tablet by ity of (IRON, 00:00: mouth in [place] FERROUS 00 the Medical SULFATE,) morning Branch 325 mg (65 and 1 mg iron) tablet in tablet the evening. ferrous 2021-11 Yes [id number] 325mg Take 1 Un good sulfate 2-06 tablet by ity of (IRON, 00:00: mouth in [place] FERROUS 00 the Medical SULFATE,) morning Branch 325 mg (65 and 1 mg iron) tablet in tablet the evening. ferrous 2021-11 Yes [id number] 325mg Take 1 Un good sulfate 2-06 tablet by ity of (IRON, 00:00: mouth in [place] FERROUS 00 the Medical SULFATE,) morning Branch 325 mg (65 and 1 mg iron) tablet in tablet the evening. ferrous 2021-11 Yes [id number] 325mg Take 1 Un good sulfate 2-06 tablet by ity of (IRON, 00:00: mouth in [place] FERROUS 00 the Medical SULFATE,) morning Branch 325 mg (65 and 1 mg iron) tablet in tablet the evening. ferrous 2021-11 Yes [id number] 325mg Take 1 Un good sulfate 2-06 tablet by ity of (IRON, 00:00: mouth in [place] FERROUS 00 the Medical SULFATE,) morning Branch 325 mg (65 and 1 mg iron) tablet in tablet the evening. ferrous 2021-11 Yes [id number] 325mg Take 1 Un good sulfate 2-06 tablet by ity of (IRON, 00:00: mouth in [place] FERROUS 00 the Medical SULFATE,) morning Branch 325 mg (65 and 1 mg iron) tablet in tablet the evening. ferrous 2021-11 Yes [id number] 325mg Take 1 Un good sulfate 2-06 tablet by ity of (IRON, 00:00: mouth in [place] FERROUS 00 the Medical SULFATE,) morning Branch 325 mg (65 and 1 mg iron) tablet in tablet the evening. ferrous 2021-11 Yes [id number] 325mg Take 1 Un good sulfate 2-06 tablet by ity of (IRON, 00:00: mouth in [place] FERROUS 00 the Medical SULFATE,) morning Branch 325 mg (65 and 1 mg iron) tablet in tablet the evening. ferrous 2021-11 Yes [id number] 325mg Take 1 Un good sulfate 2-06 tablet by ity of (IRON, 00:00: mouth in [place] FERROUS 00 the Medical SULFATE,) morning Branch 325 mg (65 and 1 mg iron) tablet in tablet the evening. ferrous 2021-11 Yes [id number] 325mg Take 1 Un good sulfate 2-06 tablet by ity of (IRON, 00:00: mouth in [place] FERROUS 00 the Medical SULFATE,) morning Branch 325 mg (65 and 1 mg iron) tablet in tablet the evening. ferrous 2021-11 Yes [id number] 325mg Take 1 Un good sulfate 2-06 tablet by ity of (IRON, 00:00: mouth in [place] FERROUS 00 the Medical SULFATE,) morning Branch 325 mg (65 and 1 mg iron) tablet in tablet the evening. ferrous 2021-11 Yes [id number] 325mg Take 1 Un good sulfate 2-06 tablet by ity of (IRON, 00:00: mouth in [place] FERROUS 00 the Medical SULFATE,) morning Branch 325 mg (65 and 1 mg iron) tablet in tablet the evening. ferrous 2021-11 Yes [id number] 325mg Take 1 Un good sulfate 2-06 tablet by ity of (IRON, 00:00: mouth in [place] FERROUS 00 the Medical SULFATE,) morning Branch 325 mg (65 and 1 mg iron) tablet in tablet the evening. ferrous 2021-11 Yes [id number] 325mg Take 1 Un good sulfate 2-06 tablet by ity of (IRON, 00:00: mouth in [place] FERROUS 00 the Medical SULFATE,) morning Branch 325 mg (65 and 1 mg iron) tablet in tablet the evening. ferrous 2021-11 Yes [id number] 325mg Take 1 Un good sulfate 2-06 tablet by ity of (IRON, 00:00: mouth in [place] FERROUS 00 the Medical SULFATE,) morning Branch 325 mg (65 and 1 mg iron) tablet in tablet the evening. ferrous 2021-11- No [id number] 325mg Take 1 U nivers sulfate 2-06 01-06 tablet by ity of (IRON, 00:00: 00:00 mouth in [place] FERROUS 00 :00 the Medical SULFATE,) morning Branch 325 mg (65 and 1 mg iron) tablet in tablet the evening. metformin 2021-11 Yes [id number] 750mg Take 1 U nivers ER 750 mg 2-02 tablet by ity o f 24 hr 00:00: mouth in [place] tablet 00 the Medical morning Branch and 1 tablet in the evening. ascorbic 2021-11 Yes [id number] 500mg Take 1 U nivers acid, 2-02 tablet by ity of vitamin C, 00:00: mouth in [place] as 500 mg 00 the Medical tablet morning Branch and 1 tablet in the evening. metformin 2021-11 Yes [id number] 750mg Take 1 U nivers ER 750 mg 2-02 tablet by ity o f 24 hr 00:00: mouth in [place] tablet 00 the Medical morning Branch and 1 tablet in the evening. ascorbic 2021-11 Yes [id number] 500mg Take 1 U nivers acid, 2-02 tablet by ity of vitamin C, 00:00: mouth in [place] as 500 mg 00 the Medical tablet morning Branch and 1 tablet in the evening. metformin 2021-11 Yes [id number] 750mg Take 1 U nivers ER 750 mg 2-02 tablet by ity o f 24 hr 00:00: mouth in [place] tablet 00 the Medical morning Branch and 1 tablet in the evening. ascorbic 2021-11 Yes [id number] 500mg Take 1 U nivers acid, 2-02 tablet by ity of vitamin C, 00:00: mouth in [place] as 500 mg 00 the Medical tablet morning Branch and 1 tablet in the evening. metformin 2021-11 Yes [id number] 750mg Take 1 U nivers ER 750 mg 2-02 tablet by ity o f 24 hr 00:00: mouth in [place] tablet 00 the Medical morning Branch and 1 tablet in the evening. ascorbic 2021-11 Yes [id number] 500mg Take 1 U nivers acid, 2-02 tablet by ity of vitamin C, 00:00: mouth in [place] as 500 mg 00 the Medical tablet morning Branch and 1 tablet in the evening. metformin 2021-11 Yes [id number] 750mg Take 1 U nivers ER 750 mg 2-02 tablet by ity o f 24 hr 00:00: mouth in [place] tablet 00 the Medical morning Branch and 1 tablet in the evening. ascorbic 2021-11 Yes [id number] 500mg Take 1 U nivers acid, 2-02 tablet by ity of vitamin C, 00:00: mouth in [place] as 500 mg 00 the Medical tablet morning Branch and 1 tablet in the evening. metformin 2021-11 Yes [id number] 750mg Take 1 U nivers ER 750 mg 2-02 tablet by ity o f 24 hr 00:00: mouth in [place] tablet 00 the Medical morning Branch and 1 tablet in the evening. ascorbic 2021-11 Yes [id number] 500mg Take 1 U nivers acid, 2-02 tablet by ity of vitamin C, 00:00: mouth in [place] as 500 mg 00 the Medical tablet morning Branch and 1 tablet in the evening. metformin 2021-11 Yes [id number] 750mg Take 1 U nivers ER 750 mg 2-02 tablet by ity o f 24 hr 00:00: mouth in [place] tablet 00 the Medical morning Branch and 1 tablet in the evening. ascorbic 2021-11 Yes [id number] 500mg Take 1 U nivers acid, 2-02 tablet by ity of vitamin C, 00:00: mouth in [place] as 500 mg 00 the Medical tablet morning Branch and 1 tablet in the evening. metformin 2021-11 Yes [id number] 750mg Take 1 U nivers ER 750 mg 2-02 tablet by ity o f 24 hr 00:00: mouth in [place] tablet 00 the Medical morning Branch and 1 tablet in the evening. ascorbic 2021-11 Yes [id number] 500mg Take 1 U nivers acid, 2-02 tablet by ity of vitamin C, 00:00: mouth in [place] as 500 mg 00 the Medical tablet morning Branch and 1 tablet in the evening. metformin 2021-11 Yes [id number] 750mg Take 1 U nivers ER 750 mg 2-02 tablet by ity o f 24 hr 00:00: mouth in [place] tablet 00 the Medical morning Branch and 1 tablet in the evening. ascorbic 2021-11 Yes [id number] 500mg Take 1 U nivers acid, 2-02 tablet by ity of vitamin C, 00:00: mouth in [place] as 500 mg 00 the Medical tablet morning Branch and 1 tablet in the evening. metformin 2021-11 Yes [id number] 750mg Take 1 U nivers ER 750 mg 2-02 tablet by ity o f 24 hr 00:00: mouth in [place] tablet 00 the Medical morning Branch and 1 tablet in the evening. ascorbic 2021-11 Yes [id number] 500mg Take 1 U nivers acid, 2-02 tablet by ity of vitamin C, 00:00: mouth in [place] as 500 mg 00 the Medical tablet morning Branch and 1 tablet in the evening. metformin 2021-11 Yes [id number] 750mg Take 1 U nivers ER 750 mg 2-02 tablet by ity o f 24 hr 00:00: mouth in [place] tablet 00 the Medical morning Branch and 1 tablet in the evening. ascorbic 2021-11 Yes [id number] 500mg Take 1 U nivers acid, 2-02 tablet by ity of vitamin C, 00:00: mouth in [place] as 500 mg 00 the Medical tablet morning Branch and 1 tablet in the evening. metformin 2021-11 Yes [id number] 750mg Take 1 U nivers ER 750 mg 2-02 tablet by ity o f 24 hr 00:00: mouth in [place] tablet 00 the Medical morning Branch and 1 tablet in the evening. ascorbic 2021-11 Yes [id number] 500mg Take 1 U nivers acid, 2-02 tablet by ity of vitamin C, 00:00: mouth in [place] as 500 mg 00 the Medical tablet morning Branch and 1 tablet in the evening. metformin 2021-11 Yes [id number] 750mg Take 1 U nivers ER 750 mg 2-02 tablet by ity o f 24 hr 00:00: mouth in [place] tablet 00 the Medical morning Branch and 1 tablet in the evening. ascorbic 2021-11 Yes [id number] 500mg Take 1 U nivers acid, 2-02 tablet by ity of vitamin C, 00:00: mouth in [place] as 500 mg 00 the Medical tablet morning Branch and 1 tablet in the evening. metformin 2021-11 Yes [id number] 750mg Take 1 U nivers ER 750 mg 2-02 tablet by ity o f 24 hr 00:00: mouth in [place] tablet 00 the Medical morning Branch and 1 tablet in the evening. ascorbic 2021-11 Yes [id number] 500mg Take 1 U nivers acid, 2-02 tablet by ity of vitamin C, 00:00: mouth in [place] 500 mg 00 the Medical tablet morning Branch and 1 tablet in the evening. metformin 2021-11 Yes [id number] 750mg Take 1 U nivers ER 750 mg 2-02 tablet by ity o f 24 hr 00:00: mouth in [place] tablet 00 the Medical morning Branch and 1 tablet in the evening. ascorbic 2021-11 Yes [id number] 500mg Take 1 [facility] nivers acid, 2-02 tablet by ity of vitamin C, 00:00: mouth in [place] as 500 mg 00 the Medical tablet morning Branch and 1 tablet in the evening. ascorbic 2021-11 Yes [id number] 500mg Take 1 [facility] nivers acid, 2-02 tablet by ity of vitamin C, 00:00: mouth in [place] as 500 mg 00 the Medical tablet morning Branch and 1 tablet in the evening. ascorbic 2021-11 Yes [id number] 500mg Take 1 [facility] acid, 2-02 tablet by ity of vitamin C, 00:00: mouth in [place] as 500 mg 00 the Medical tablet morning Branch and 1 tablet in the evening. ascorbic 2021-11 Yes [id number] 500mg Take 1 [facility] acid, 2-02 tablet by ity of vitamin C, 00:00: mouth in [place] as 500 mg 00 the Medical tablet morning Branch and 1 tablet in the evening. ascorbic 2021-11 Yes [id number] 500mg Take 1 [facility] acid, 2-02 tablet by ity of vitamin C, 00:00: mouth in [place] 500 mg 00 the Medical tablet morning Branch and 1 tablet in the evening. ascorbic 2021-11 Yes [id number] 500mg Take 1 [facility] acid, 2-02 tablet by ity of vitamin C, 00:00: mouth in [place] 500 mg 00 the Medical tablet morning Branch and 1 tablet in the evening. ascorbic 2021-11 Yes [id number] 500mg Take 1 [facility] acid, 2-02 tablet by ity of vitamin C, 00:00: mouth in [place] 500 mg 00 the Medical tablet morning Branch and 1 tablet in the evening. ascorbic 2021-11 Yes [id number] 500mg Take 1 [facility] acid, 2-02 tablet by ity of vitamin C, 00:00: mouth in [place] 500 mg 00 the Medical tablet morning Branch and 1 tablet in the evening. ascorbic 2021-11 Yes [id number] 500mg Take 1 [facility] acid, 2-02 tablet by ity of vitamin C, 00:00: mouth in [place] 500 mg 00 the Medical tablet morning Branch and 1 tablet in the evening. ascorbic 2021-11 Yes [id number] 500mg Take 1 [facility] acid, 2-02 tablet by ity of vitamin C, 00:00: mouth in [place] 500 mg 00 the Medical tablet morning Branch and 1 tablet in the evening. metformin 2021-11 Yes [id number] 750mg Take 1 [facility] nivers ER 750 mg 2-02 tablet by ity o f 24 hr 00:00: mouth in [place] tablet 00 the Medical morning Branch and 1 tablet in the evening. ferrous 2021-11 Yes [id number] 325mg Take 1 Un good sulfate 2-02 tablet by ity of (IRON, 00:00: mouth in [place] FERROUS 00 the Medical SULFATE,) morning Branch 325 mg (65 and 1 mg iron) tablet at tablet noon and 1 tablet in the evening. Take with meals. ascorbic 2021-11 Yes [id number] 500mg Take 1 [facility] nivers acid, 2-02 tablet by ity of vitamin C, 00:00: mouth in [place] as 500 mg 00 the Medical tablet morning Branch and 1 tablet in the evening. metformin 2021-11 Yes [id number] 750mg Take 1 [facility] ER 750 mg 2-02 tablet by ity o f 24 hr 00:00: mouth in [place] tablet 00 the Medical morning Branch and 1 tablet in the evening. ferrous 2021-11 Yes [id number] 325mg Take 1 Un good sulfate 2-02 tablet by ity of (IRON, 00:00: mouth in [place] FERROUS 00 the Medical SULFATE,) morning Branch 325 mg (65 and 1 mg iron) tablet at tablet noon and 1 tablet in the evening. Take with meals. ascorbic 2021-11 Yes [id number] 500mg Take 1 [facility] n[facility] acid, 2-02 tablet by ity of vitamin C, 00:00: mouth in [place] as 500 mg 00 the Medical tablet morning Branch and 1 tablet in the evening. metformin 2021-11 Yes [id number] 750mg Take 1 [facility] n[facility] ER 750 mg 2-02 tablet by ity o f 24 hr 00:00: mouth in [place] tablet 00 the Medical morning Branch and 1 tablet in the evening. ascorbic 2021-11 Yes [id number] 500mg Take 1 [facility] nivers acid, 2-02 tablet by ity of vitamin C, 00:00: mouth in [place] as 500 mg 00 the Medical tablet morning Branch and 1 tablet in the evening. metformin 2021-11 Yes [id number] 750mg Take 1 [facility] ER 750 mg 2-02 tablet by ity o f 24 hr 00:00: mouth in [place] tablet 00 the Medical morning Branch and 1 tablet in the evening. ascorbic 2021-11 Yes [id number] 500mg Take 1 [facility] nivers acid, 2-02 tablet by ity of vitamin C, 00:00: mouth in [place] as 500 mg 00 the Medical tablet morning Branch and 1 tablet in the evening. metformin 2021-11 Yes [id number] 750mg Take 1 [facility] n[facility] ER 750 mg 2-02 tablet by ity o f 24 hr 00:00: mouth in [place] tablet 00 the Medical morning Branch and 1 tablet in the evening. ascorbic 2021-11 Yes [id number] 500mg Take 1 [facility] nivers acid, 2-02 tablet by ity of vitamin C, 00:00: mouth in [place] 500 mg 00 the Medical tablet morning Branch and 1 tablet in the evening. metformin 2021-11 Yes [id number] 750mg Take 1 [facility] nivers ER 750 mg 2-02 tablet by ity o f 24 hr 00:00: mouth in [place] tablet 00 the Medical morning Branch and 1 tablet in the evening. ascorbic 2021-11 Yes [id number] 500mg Take 1 [facility] nivers acid, 2-02 tablet by ity of vitamin C, 00:00: mouth in [place] as 500 mg 00 the Medical tablet morning Branch and 1 tablet in the evening. metformin 2021-11 Yes [id number] 750mg Take 1 [facility] nivers ER 750 mg 2-02 tablet by ity o f 24 hr 00:00: mouth in [place] tablet 00 the Medical morning Branch and 1 tablet in the evening. ascorbic 2021-11 Yes [id number] 500mg Take 1 [facility] nivers acid, 2-02 tablet by ity of vitamin C, 00:00: mouth in [place] 500 mg 00 the Medical tablet morning Branch and 1 tablet in the evening. metformin 2021-11 Yes [id number] 750mg Take 1 [facility] nivers ER 750 mg 2-02 tablet by ity o f 24 hr 00:00: mouth in [place] tablet 00 the Medical morning Branch and 1 tablet in the evening. ascorbic 2021-11 Yes [id number] 500mg Take 1 [facility] nivers acid, 2-02 tablet by ity of vitamin C, 00:00: mouth in [place] as 500 mg 00 the Medical tablet morning Branch and 1 tablet in the evening. ascorbic 2021-11- No [id number] 500mg Take 1 [facility] acid, 12-31 tablet by ity of vitamin C, 00:00: 00:00 mouth in [place] 500 mg 00 :00 the Medical tablet morning Branch and 1 tablet in the evening. ascorbic 2021-11- No [id number] 500mg Take 1 [facility] acid, 12-31 tablet by ity of vitamin C, 00:00: 00:00 mouth in [place] 500 mg 00 :00 the Medical tablet morning Branch and 1 tablet in the evening. ascorbic 2021-11- No [id number] 500mg Take 1 [facility] acid, 12-3124 tablet by ity of vitamin C, 00:00: 00:00 mouth in [place] 500 mg 00 :00 the Medical tablet morning Branch and 1 tablet in the evening. metformin 2021-11- No [id number] 750mg Take 1 [facility] ER 750 mg 212-04 tablet by ity of 24 hr 00:00: 00:00 mouth in [place] tablet 00 :00 the Medical morning Branch and 1 tablet in the evening. ferrous 2021-11- No [id number] 325mg Take 1 U nivers sulfate 12-3106 tablet by ity of (IRON, 00:00: 00:00 mouth in [place] FERROUS 00 :00 the Medical SULFATE,) morning Branch 325 mg (65 and 1 mg iron) tablet at tablet noon and 1 tablet in the evening. Take with meals. metformin 2021-11 Yes [id number] 500mg Take 1 [facility] nivers ER 500 mg 1-18 tablet by ity o f 24 hr 00:00: mouth in [place] tablet 00 the Medical morning Branch and 1 tablet in the evening. Take with meals. metformin 2021-11 Yes [id number] 500mg Take 1 [facility] n[facility] ER 500 mg 1-18 tablet by ity o f 24 hr 00:00: mouth in [place] tablet 00 the Medical morning Branch and 1 tablet in the evening. Take with meals. metformin 2021-11 Yes [id number] 500mg Take 1 [facility] n[facility] ER 500 mg 1-18 tablet by ity o f 24 hr 00:00: mouth in [place] tablet 00 the Medical morning Branch and 1 tablet in the evening. Take with meals. metformin 2021-11- No [id number] 500mg Take 1 [facility] ER 500 mg 1-18 -02 tablet by ity of 24 hr 00:00: 00:00 mouth in [place] tablet 00 :00 the Medical morning Branch and 1 tablet in the evening. Take with meals. NaCl 0.9% 2021- No 1000mL at 999 [facility] vers (NS) bolus 08-12 09-14 mL/hr, ity of infusion 20:30: 22:00 1,000 mL, [place] as 1,000 mL 00 :00 IV Medical Infusion, Branch ONCE, 1 dose, On Wed08/12/22 at 1530, STAT metformin 2021-0 Yes [id number] 500mg Take 1 [facility] n[facility] ER 500 mg 8-30 tablet by ity o f 24 hr 00:00: mouth in [place] tablet 00 the Medical morning Branch and 1 tablet in the evening. Take with meals. metformin 2021-0 Yes [id number] 500mg Take 1 [facility] n[facility] ER 500 mg 8-30 tablet by ity o f 24 hr 00:00: mouth in [place] tablet 00 the Medical morning Branch and 1 tablet in the evening. Take with meals. metformin 2021-0 Yes [id number] 500mg Take 1 [facility] n[facility] ER 500 mg 8-30 tablet by ity o f 24 hr 00:00: mouth in [place] tablet 00 the Medical morning Branch and 1 tablet in the evening. Take with meals. metformin 2022-0 Yes [id number] 500mg Take 1 [facility] n[facility] ER 500 mg 8-30 tablet by ity o f 24 hr 00:00: mouth in [place] tablet 00 the Medical morning Branch and 1 tablet in the evening. Take with meals. metformin 2022-0 Yes [id number] 500mg Take 1 [facility] nivers ER 500 mg 8-30 tablet by ity o f 24 hr 00:00: mouth in [place] tablet 00 the Medical morning Branch and 1 tablet in the evening. Take with meals. metformin 2-0 Yes [id number] 500mg Take 1 [facility] nivers ER 500 mg 8-30 tablet by ity o f 24 hr 00:00: mouth in [place] tablet 00 the Medical morning Branch and 1 tablet in the evening. Take with meals. metformin 2021-0 Yes [id number] 500mg Take 1 [facility] nivers ER 500 mg 8-30 tablet by ity o f 24 hr 00:00: mouth in [place] tablet 00 the Medical morning Branch and 1 tablet in the evening. Take with meals. metformin 2021-0 Yes [id number] 500mg Take 1 [facility] n[facility] ER 500 mg 8-30 tablet by ity o f 24 hr 00:00: mouth in [place] tablet 00 the Medical morning Branch and 1 tablet in the evening. Take with meals. metformin 2021-0 Yes [id number] 500mg Take 1 [facility] nivers ER 500 mg 8-30 tablet by ity o f 24 hr 00:00: mouth in [place] tablet 00 the Medical morning Branch and 1 tablet in the evening. Take with meals. metformin 2022-0 Yes [id number] 500mg Take 1 [facility] nivers ER 500 mg 8-30 tablet by ity o f 24 hr 00:00: mouth in [place] tablet 00 the Medical morning Branch and 1 tablet in the evening. Take with meals. metformin 2022-0 Yes [id number] 500mg Take 1 [facility] nivers ER 500 mg 8-30 tablet by ity o f 24 hr 00:00: mouth in [place] tablet 00 the Medical morning Branch and 1 tablet in the evening. Take with meals. metformin 2022-0 Yes [id number] 500mg Take 1 [facility] nivers ER 500 mg 8-30 tablet by ity o f 24 hr 00:00: mouth in [place] tablet 00 the Medical morning Branch and 1 tablet in the evening. Take with meals. metformin 2022-0 Yes [id number] 500mg Take 1 U nivers ER 500 mg 8-30 tablet by ity o f 24 hr 00:00: mouth in [place] tablet 00 the Medical morning Branch and 1 tablet in the evening. Take with meals. metformin 2021-0 Yes [id number] 500mg Take 1 [facility] nivers ER 500 mg 8-30 tablet by ity o f 24 hr 00:00: mouth in [place] tablet 00 the Medical morning Branch and 1 tablet in the evening. Take with meals. metformin 2021-0 Yes [id number] 500mg Take 1 U nivers ER 500 mg 8-30 tablet by ity o f 24 hr 00:00: mouth in [place] tablet 00 the Medical morning Branch and 1 tablet in the evening. Take with meals. metformin 2021-0 202- No [id number] 500mg Take 1 [facility] ER 500 mg 8-30 11-18 tablet by ity of 24 hr 00:00: 00:00 mouth in [place] tablet 00 :00 the Medical morning Branch and 1 tablet in the evening. Take with meals. Blood-Gluco Yes Use as Univ ers se Meter 07-01 directed ity of (ACCU-CHEK 00:00: [place] GUIDE 00 Medical GLUCOSE Branch METER[place] [facility] [place] Pt to [facility] diagnostic 07-01 check ity of (ACCU-CHEK 00:00: [place] GU[place] TEST 00 levels 4 x Med ical STRIPS) per day. Branch strip lancets 0 Yes Pt to Univer s gauge Misc 07-01 check ity of 00:00: glucose [place] 00 levels 4 x Medical per day. Branch Blood-Gluco Yes Use as [facility] ers se Meter 07-01 directed ity of (ACCU-CHEK 00:00: [place] GUIDE 00 Medical GLUCOSE Branch METER[place] [facility] [place] Yes Pt to [facility] diagnostic 07-01 check ity of (ACCU-CHEK 00:00: [place] GU[place] TEST 00 levels 4 x Med ical STRIPS) per day. Branch strip lancets 0 Yes Pt to Univer s gauge Misc 07-01 check ity of 00:00: glucose [place] 00 levels 4 x Medical per day. Branch Blood-Gluco Yes Use as [facility] ers se Meter 07-01 directed ity of (ACCU-CHEK 00:00: [place] GUIDE 00 Medical GLUCOSE Branch METER[place] [facility] [place] 0 Yes Pt to Un[facility] rs diagnostic 07-01 check ity of (ACCU-CHEK 00:00: [place] GU[place] TEST 00 levels 4 x Med ical STRIPS) per day. Branch strip lancets 33 0 Yes Pt to Univer s gauge Misc 07-01 check ity of 00:00: glucose [place] 00 levels 4 x Medical per day. Branch Blood-Gluco Yes Use as [facility] ers se Meter 07-01 directed ity of (ACCU-CHEK 00:00: [place] GUIDE 00 Medical GLUCOSE Branch METER[place] [facility] [place] Yes Pt to [facility] rs diagnostic 07-01 check ity of (ACCU-CHEK 00:00: [place] GU[place] TEST 00 levels 4 x Med ical STRIPS) per day. Branch strip lancets 33 0 Yes Pt to [facility] gauge Misc 07-01 check ity of 00:00: glucose [place] 00 levels 4 x Medical per day. Branch Blood-Gluco Yes Use as [facility] ers se Meter 07-01 directed ity of (ACCU-CHEK 00:00: [place] GUIDE 00 Medical GLUCOSE Branch METER) [facility] [place] sugar Yes Pt to [facility] diagnostic 07-01 check ity of (ACCU-CHEK 00:00: [place] GU[place] TEST 00 levels 4 x Med ical STRIPS) per day. Branch strip lancets 33 0 Yes Pt to [facility] gauge Misc 07-01 check ity of 00:00: glucose [place] 00 levels 4 x Medical per day. Branch Blood-Gluco Yes Use as [facility] ers se Meter 07-01 directed ity of (ACCU-CHEK 00:00: [place] GUIDE 00 Medical GLUCOSE Branch METER) [facility] [place] 0 Yes Pt to Un[facility] rs diagnostic 07-01 check ity of (ACCU-CHEK 00:00: [place] GU[place] TEST 00 levels 4 x Med ical STRIPS) per day. Branch strip lancets 33 2021-0 Yes Pt to Univer s gauge Misc 07-01 check ity of 00:00: glucose [place] 00 levels 4 x Medical per day. Branch Blood-Gluco Yes Use as Univ ers se Meter 07-01 directed ity of (ACCU-CHEK 00:00: [place] GUIDE 00 Medical GLUCOSE Branch METER) [facility] [place] Yes Pt to [facility] rs diagnostic 07-01 check ity of (ACCU-CHEK 00:00: [place] GU[place] TEST 00 levels 4 x Med ical STRIPS) per day. Branch strip lancets 33 Yes Pt to Univer s gauge Misc 07-01 check ity of 00:00: glucose [place] 00 levels 4 x Medical per day. Branch Blood-Gluco Yes Use as [facility] ers se Meter 07-01 directed ity of (ACCU-CHEK 00:00: [place] GUIDE 00 Medical GLUCOSE Branch METER) [facility] [place] Yes Pt to [facility] rs diagnostic 07-01 check ity of (ACCU-CHEK 00:00: [place] GU[place] TEST 00 levels 4 x Med ical STRIPS) per day. Branch strip lancets 33 Yes Pt to [facility] gauge Misc 07-01 check ity of 00:00: glucose [place] 00 levels 4 x Medical per day. Branch Blood-Gluco Yes Use as [facility] ers se Meter 07-01 directed ity of (ACCU-CHEK 00:00: [place] GUIDE 00 Medical GLUCOSE Branch METER) [facility] [place] Yes Pt to [facility] rs diagnostic 07-01 check ity of (ACCU-CHEK 00:00: [place] GU[place] TEST 00 levels 4 x Med ical STRIPS) per day. Branch strip lancets 33 0 Yes Pt to [facility] gauge Misc 07-01 check ity of 00:00: glucose [place] 00 levels 4 x Medical per day. Branch Blood-Gluco Yes Use as [facility] ers se Meter 07-01 directed ity of (ACCU-CHEK 00:00: [place] GUIDE 00 Medical GLUCOSE Branch METER) [facility] [place] sugar Yes Pt to [facility] rs diagnostic 07-01 check ity of (ACCU-CHEK 00:00: [place] GU[place] TEST 00 levels 4 x Med ical STRIPS) per day. Branch strip lancets 33 0 Yes Pt to Univer s gauge Misc 07-01 check ity of 00:00: glucose [place] 00 levels 4 x Medical per day. Branch Blood-Gluco 0 Yes Use as [facility] ers se Meter 07-01 directed ity of (ACCU-CHEK 00:00: [place] GUIDE 00 Medical GLUCOSE Branch METER) [facility] [place] sugar 0 Yes Pt to Un[facility] rs diagnostic 07-01 check ity of (ACCU-CHEK 00:00: [place] GU[place] TEST 00 levels 4 x Med ical STRIPS) per day. Branch strip lancets 33 0 Yes Pt to Univer s gauge Misc 07-01 check ity of 00:00: glucose [place] 00 levels 4 x Medical per day. Branch Blood-Gluco Yes Use as [facility] ers se Meter 07-01 directed ity of (ACCU-CHEK 00:00: [place] GUIDE 00 Medical GLUCOSE Branch METER) [facility] [place] sugar Yes Pt to [facility] rs diagnostic 07-01 check ity of (ACCU-CHEK 00:00: [place] GUIDE TEST 00 levels 4 x Med ical STRIPS) per day. Branch strip lancets 33 0 Yes Pt to Univer s gauge Misc 07-01 check ity of 00:00: glucose [place] 00 levels 4 x Medical per day. Branch Blood-Gluco Yes Use as [facility] ers se Meter 07-01 directed ity of (ACCU-CHEK 00:00: [place] GUIDE 00 Medical GLUCOSE Branch METER) [facility] [place] sugar Yes Pt to [facility] rs diagnostic 07-01 check ity of (ACCU-CHEK 00:00: [place] GU[place] TEST 00 levels 4 x Med ical STRIPS) per day. Branch strip lancets 33 0 Yes Pt to Univer s gauge Misc 07-01 check ity of 00:00: glucose [place] 00 levels 4 x Medical per day. Branch Blood-Gluco Yes Use as [facility] ers se Meter 07-01 directed ity of (ACCU-CHEK 00:00: [place] GUIDE 00 Medical GLUCOSE Branch METER) [facility] [place] 0 Yes Pt to Un[facility] rs diagnostic 07-01 check ity of (ACCU-CHEK 00:00: [place] GU[place] TEST 00 levels 4 x Med ical STRIPS) per day. Branch strip lancets 33 2022-0 Yes Pt to Univer s gauge Misc 07-01 check ity of 00:00: glucose [place] 00 levels 4 x Medical per day. Branch Blood-Gluco Yes Use as [facility] ers se Meter 07-01 directed ity of (ACCU-CHEK 00:00: [place] GUIDE 00 Medical GLUCOSE Branch METER) [facility] [place] sugar Yes Pt to [facility] rs diagnostic 07-01 check ity of (ACCU-CHEK 00:00: [place] GUIDE TEST 00 levels 4 x Med ical STRIPS) per day. Branch strip lancets 33 0 Yes Pt to Univer s gauge Misc 07-01 check ity of 00:00: glucose [place] 00 levels 4 x Medical per day. Branch Blood-Gluco Yes Use as [facility] ers se Meter 07-01 directed ity of (ACCU-CHEK 00:00: [place] GUIDE 00 Medical GLUCOSE Branch METER) [facility] [place] sugar Yes Pt to [facility] rs diagnostic 07-01 check ity of (ACCU-CHEK 00:00: [place] GU[place] TEST 00 levels 4 x Med ical STRIPS) per day. Branch strip lancets 33 0 Yes Pt to Univer s gauge Misc 07-01 check ity of 00:00: glucose [place] 00 levels 4 x Medical per day. Branch Blood-Gluco Yes Use as Univ ers se Meter 07-01 directed ity of (ACCU-CHEK 00:00: [place] GUIDE 00 Medical GLUCOSE Branch METER) [facility] [place] sugar Yes Pt to [facility] rs diagnostic 07-01 check ity of (ACCU-CHEK 00:00: [place] GU[place] TEST 00 levels 4 x Med ical STRIPS) per day. Branch strip lancets 33 0 Yes Pt to Univer s gauge Misc 07-01 check ity of 00:00: glucose [place] 00 levels 4 x Medical per day. Branch Blood-Gluco Yes Use as Univ ers se Meter 07-01 directed ity of (ACCU-CHEK 00:00: [place] GUIDE 00 Medical GLUCOSE Branch METER) [facility] [place] sugar Yes Pt to [facility] rs diagnostic 07-01 check ity of (ACCU-CHEK 00:00: [place] GUIDE TEST 00 levels 4 x Med ical STRIPS) per day. Branch strip lancets 33 0 Yes Pt to Univer s gauge Misc 07-01 check ity of 00:00: glucose [place] 00 levels 4 x Medical per day. Branch Blood-Gluco 0 Yes Use as Univ ers se Meter 07-01 directed ity of (ACCU-CHEK 00:00: [place] GUIDE 00 Medical GLUCOSE Branch METER) [facility] [place] sugar Yes Pt to [facility] rs diagnostic 07-01 check ity of (ACCU-CHEK 00:00: [place] GU[place] TEST 00 levels 4 x Med ical STRIPS) per day. Branch strip lancets 33 0 Yes Pt to Univer s gauge Misc 07-01 check ity of 00:00: glucose [place] 00 levels 4 x Medical per day. Branch Blood-Gluco Yes Use as [facility] ers se Meter 07-01 directed ity of (ACCU-CHEK 00:00: [place] GUIDE 00 Medical GLUCOSE Branch METER) [facility] [place] sugar Yes Pt to [facility] rs diagnostic 07-01 check ity of (ACCU-CHEK 00:00: [place] GU[place] TEST 00 levels 4 x Med ical STRIPS) per day. Branch strip lancets 33 0 Yes Pt to Univer s gauge Misc 07-01 check ity of 00:00: glucose [place] 00 levels 4 x Medical per day. Branch Blood-Gluco Yes Use as [facility] ers se Meter 07-01 directed ity of (ACCU-CHEK 00:00: [place] GUIDE 00 Medical GLUCOSE Branch METER) [facility] [place] sugar Yes Pt to [facility] rs diagnostic 07-01 check ity of (ACCU-CHEK 00:00: [place] GU[place] TEST 00 levels 4 x Med ical STRIPS) per day. Branch strip lancets 33 0 Yes Pt to Univer s gauge Misc 07-01 check ity of 00:00: glucose [place] 00 levels 4 x Medical per day. Branch Blood-Gluco Yes Use as [facility] ers se Meter 07-01 directed ity of (ACCU-CHEK 00:00: [place] GUIDE 00 Medical GLUCOSE Branch METER) [facility] [place] sugar Yes Pt to [facility] rs diagnostic 07-01 check ity of (ACCU-CHEK 00:00: [place] GU[place] TEST 00 levels 4 x Med ical STRIPS) per day. Branch strip lancets 33 2021-0 Yes Pt to Univer s gauge Misc 07-01 check ity of 00:00: glucose [place] 00 levels 4 x Medical per day. Branch Blood-Gluco 0 Yes Use as [facility] ers se Meter 07-01 directed ity of (ACCU-CHEK 00:00: [place] GUIDE 00 Medical GLUCOSE Branch METER) [facility] [place] sugar 0 Yes Pt to [facility] rs diagnostic 07-01 check ity of (ACCU-CHEK 00:00: [place] GU[place] TEST 00 levels 4 x Med ical STRIPS) per day. Branch strip lancets 33 0 Yes Pt to [facility] gauge Misc 07-01 check ity of 00:00: glucose [place] 00 levels 4 x Medical per day. Branch Blood-Gluco Yes Use as Univ ers se Meter 07-01 directed ity of (ACCU-CHEK 00:00: [place] GUIDE 00 Medical GLUCOSE Branch METER) [facility] [place] sugar Yes Pt to [facility] diagnostic 07-01 check ity of (ACCU-CHEK 00:00: [place] GU[place] TEST 00 levels 4 x Med ical STRIPS) per day. Branch strip lancets 33 0 Yes Pt to [facility] gauge Misc 07-01 check ity of 00:00: glucose [place] 00 levels 4 x Medical per day. Branch Blood-Gluco Yes Use as Univ ers se Meter 07-01 directed ity of (ACCU-CHEK 00:00: [place] GUIDE 00 Medical GLUCOSE Branch METER) [facility] [place] sugar 0 Yes Pt to [facility] diagnostic 07-01 check ity of (ACCU-CHEK 00:00: [place] GU[place] TEST 00 levels 4 x Med ical STRIPS) per day. Branch strip lancets 33 2021-0 Yes Pt to Univer s gauge Misc 07-01 check ity of 00:00: glucose [place] 00 levels 4 x Medical per day. Branch Blood-Gluco Yes Use as Univ ers se Meter 07-01 directed ity of (ACCU-CHEK 00:00: [place] GUIDE 00 Medical GLUCOSE Branch METER) [facility] [place] sugar Yes Pt to [facility] diagnostic 07-01 check ity of (ACCU-CHEK 00:00: [place] GUIDE TEST 00 levels 4 x Med ical STRIPS) per day. Branch strip lancets 33 0 Yes Pt to Univer s gauge Misc 07-01 check ity of 00:00: glucose [place] 00 levels 4 x Medical per day. Branch Blood-Gluco Yes Use as Univ ers se Meter 07-01 directed ity of (ACCU-CHEK 00:00: [place] GUIDE 00 Medical GLUCOSE Branch METER) [facility] [place] sugar Yes Pt to [facility] diagnostic 07-01 check ity of (ACCU-CHEK 00:00: [place] GU[place] TEST 00 levels 4 x Med ical STRIPS) per day. Branch strip lancets 33 Yes Pt to [facility] gauge Misc 07-01 check ity of 00:00: glucose [place] 00 levels 4 x Medical per day. Branch Blood-Gluco Yes Use as Univ ers se Meter 07-01 directed ity of (ACCU-CHEK 00:00: [place] GUIDE 00 Medical GLUCOSE Branch METER) [facility] [place] sugar Yes Pt to [facility] diagnostic 07-01 check ity of (ACCU-CHEK 00:00: [place] GU[place] TEST 00 levels 4 x Med ical STRIPS) per day. Branch strip lancets 33 0 Yes Pt to [facility] gauge Misc 07-01 check ity of 00:00: glucose [place] 00 levels 4 x Medical per day. Branch Blood-Gluco Yes Use as Univ ers se Meter 07-01 directed ity of (ACCU-CHEK 00:00: [place] GUIDE 00 Medical GLUCOSE Branch METER) [facility] [place] sugar Yes Pt to [facility] diagnostic 07-01 check ity of (ACCU-CHEK 00:00: [place] GU[place] TEST 00 levels 4 x Med ical STRIPS) per day. Branch strip lancets 33 0 Yes Pt to Univer s gauge Misc 07-01 check ity of 00:00: glucose [place] 00 levels 4 x Medical per day. Branch Blood-Gluco Yes Use as Univ ers se Meter 07-01 directed ity of (ACCU-CHEK 00:00: [place] GUIDE 00 Medical GLUCOSE Branch METER) [facility] [place] sugar Yes Pt to [facility] rs diagnostic 07-01 check ity of (ACCU-CHEK 00:00: [place] GU[place] TEST 00 levels 4 x Med ical STRIPS) per day. Branch strip lancets 33 0 Yes Pt to Un[facility] s gauge Misc 07-01 check ity of 00:00: glucose [place] 00 levels 4 x Medical per day. Branch Blood-Gluco Yes Use as Univ ers se Meter 07-01 directed ity of (ACCU-CHEK 00:00: [place] GUIDE 00 Medical GLUCOSE Branch METER) [facility] [facility] [facility] diagnostic 07-01 check [facility]y [facility] (ACCU[place]CHEK 00:[place]: [place] 00 levels 4 x Med ical STRIPS) per day. Branch strip lancets 33 0 Yes Pt to Univer s gauge Misc 07-01 check ity of 00:00: glucose [place] 00 levels 4 x Medical per day. Branch Blood-Gluco Yes Use as Univ ers se Meter 07-01 directed ity of (ACCU-CHEK 00:00: [place] GUIDE 00 Medical GLUCOSE Branch METER) [facility] [place] [facility] diagnostic 07-01 check [facility]y of (ACCU-CHEK 00:00: [place] GU[place] 00 levels 4 x Med ical STRIPS) per day. Branch strip lancets 33 0 Yes Pt to Univer s gauge Misc 07-01 check ity of 00:00: glucose [place] 00 levels 4 x Medical per day. Branch Blood-Gluco Yes Use as Univ ers se Meter 07-01 directed ity of (ACCU-CHEK 00:00: [place] GUIDE 00 Medical GLUCOSE Branch METER) [facility] [place] 0 [place] to [facility] diagnostic 07-01 check [facility]y of (ACCU-CHEK 00:00: [place] 00 levels 4 x Med ical STRIPS) per day. Branch strip lancets 33 2021-0 Yes Pt to Un[facility] gauge Misc 07-01 check ity of 00:00: glucose [place] 00 levels 4 x Medical per day. Branch Blood-Gluco Yes Use as Univ ers se Meter 07-01 directed ity of (ACCU-CHEK 00:00: [place] GUIDE 00 Medical GLUCOSE Branch METER) [facility] [place] to [facility] diagnostic 07-01 check [facility]y of (ACCU-CHEK 00:00: [place] 00 levels 4 x Med ical STRIPS) per day. Branch strip lancets 33 0 Yes Pt to Un[facility] gauge Misc 07-01 check ity of 00:00: glucose [place] 00 levels 4 x Medical per day. Branch Blood-Gluco Yes Use as [facility] ers se Meter 07-01 directed ity of (ACCU-CHEK 00:00: [place] GUIDE 00 Medical GLUCOSE Branch METER) [facility] [place] to [facility] diagnostic 07-01 check [facility]y of (ACCU-CHEK 00:00: [place] GU[place] 00 levels 4 x Med ical STRIPS) per day. Branch strip lancets Yes Pt to Un[facility] gauge Misc 07-01 check ity of 00:00: glucose [place] 00 levels 4 x Medical per day. Branch Blood-Gluco Yes Use as Univ ers se Meter 07-01 directed ity of (ACCU-CHEK 00:00: [place] GUIDE 00 Medical GLUCOSE Branch METER) [facility] [place] to [facility] diagnostic 07-01 check [facility]y of (ACCU-CHEK 00:00: [place] 00 levels 4 x Med ical STRIPS) per day. Branch strip lancets 33 0 Yes Pt to Univer s gauge Misc 07-01 check ity of 00:00: glucose [place] 00 levels 4 x Medical per day. Branch Blood-Gluco Yes Use as [facility] ers se Meter 07-01 directed ity of (ACCU-CHEK 00:00: [place] GUIDE 00 Medical GLUCOSE Branch METER) [facility] [place] to [facility] diagnostic 07-01 check [facility]y of (ACCU-CHEK 00:00: [place] GU[place] 00 levels 4 x Med ical STRIPS) per day. Branch strip lancets 33 0 Yes Pt to Univer s gauge Misc 07-01 check ity of 00:00: glucose [place] 00 levels 4 x Medical per day. Branch Blood-Gluco 0 Yes Use as Univ ers se Meter 07-01 directed ity of (ACCU-CHEK 00:00: [place] GUIDE 00 Medical GLUCOSE Branch METER) [facility] [place] 0 Yes [place] to [facility] diagnostic 07-01 check ity of (ACCU-CHEK 00:00: [place] GU[place] 00 levels 4 x Med ical STRIPS) per day. Branch strip lancets 33 0 Yes Pt to Un[facility] gauge Misc 07-01 check ity of 00:00: glucose [place] 00 levels 4 x Medical per day. Branch Blood-Gluco Yes Use as [facility] ers se Meter 07-01 directed ity of (ACCU-CHEK 00:00: [place] GUIDE 00 Medical GLUCOSE Branch METER) [facility] [place] to [facility] diagnostic 07-01 check [facility]y of (ACCU-CHEK 00:00: [place] GU[place] 00 levels 4 x Med ical STRIPS) per day. Branch strip lancets 33 0 Yes Pt to Un[facility] gauge Misc 07-01 check ity of 00:00: glucose [place] 00 levels 4 x Medical per day. Branch Blood-Gluco Yes Use as [facility] ers se Meter 07-01 directed ity of (ACCU-CHEK 00:00: [place] GUIDE 00 Medical GLUCOSE Branch METER) [facility] [place] to [facility] diagnostic 07-01 check ity of (ACCU-CHEK 00:00: glucose [place] GU[place] TEST 00 levels 4 x Med ical STRIPS) per day. Branch strip lancets 33 0 Yes Pt to Un[facility] s gauge Misc 07-01 check ity of 00:00: glucose [place] 00 levels 4 x Medical per day. Branch Blood-Gluco 0 Yes Use as Univ ers se Meter 07-01 directed ity of (ACCU-CHEK 00:00: [place] GUIDE 00 Medical GLUCOSE Branch METER) [facility] [place] 0 Yes Pt to [facility] diagnostic 07-01 check ity of (ACCU-CHEK 00:00: [place] GU[place] TEST 00 levels 4 x Med ical STRIPS) per day. Branch strip lancets 33 2022-0 Yes Pt to [facility] gauge Misc 07-01 check ity of 00:00: glucose [place] 00 levels 4 x Medical per day. Branch Blood-Gluco Yes Use as Univ ers se Meter 07-01 directed ity of (ACCU-CHEK 00:00: [place] GUIDE 00 Medical GLUCOSE Branch METER) [facility] [place] to [facility] diagnostic 07-01 check ity of (ACCU-CHEK 00:00: [place] GU[place] TEST 00 levels 4 x Med ical STRIPS) per day. Branch strip lancets 33 Yes Pt to Univer s gauge Misc 07-01 check ity of 00:00: glucose [place] 00 levels 4 x Medical per day. Branch Blood-Gluco 2022- No Use as Uni vers se Meter 07-01 directed ity of (ACCU-CHEK 00:00: 00:00 [place] GUIDE 00 :00 Medical GLUCOSE Branch METER) [facility] [place] 2022- No Pt to [facility] ers diagnostic 07-01 check ity of (ACCU-CHEK 00:00: 00:00 glucose [place] as GUIDE TEST 00 :00 levels 4 x Med ical STRIPS) per day. Branch strip lancets 2022- No Pt to Unive rs gauge Misc 07-01 check ity of 00:00: 00:00 glucose [place] 00 :00 levels 4 x Medical per day. Branch doxylamine Yes [id number] 25mg Take 1 U nivers 25 mg 6-09 tablet by ity of tablet 00:00: mouth at [place] 00 bedtime. Medical Branch Yes [id number] 1{packe Take 1 [facility] vit 6-09 t} Packet by ity of 33-iron-fol 00:00: mouth [place] ic-dha 00 daily. Medical ([facility] Branch + DHA) 29 mg iron-1 mg -250 mg combo pack pyridoxine, Yes [id number] 25mg Take 1 [facility] VITAMIN 6-09 tablet by ity of B-6, 25 mg 00:00: mouth 3 [place] tablet 00 (three) Medical times Branch daily. doxylamine 2022-0 Yes [id number] 25mg Take 1 U nivers 25 mg 6-09 tablet by ity of tablet 00:00: mouth at [place] 00 bedtime. Medical Branch Yes [id number] 1{packe Take 1 [facility] vit 6-09 t} Packet by ity of 33-iron-fol 00:00: mouth [place] ic-dha 00 daily. Medical ([facility] Branch + DHA) 29 mg iron-1 mg -250 mg combo pack pyridoxine, 0 Yes [id number] 25mg Take 1 [facility] VITAMIN 6-09 tablet by ity of B-6, 25 mg 00:00: mouth 3 [place] tablet 00 (three) Medical times Branch daily. doxylamine Yes [id number] 25mg Take 1 U nivers 25 mg 6-09 tablet by ity of tablet 00:00: mouth at [place] 00 bedtime. Medical Branch Yes [id number] 1{packe Take 1 [facility] vit 6-09 t} Packet by ity of 33-iron-fol 00:00: mouth [place] ic-dha 00 daily. Medical ([facility] Branch + DHA) 29 mg iron-1 mg -250 mg combo pack pyridoxine, Yes [id number] 25mg Take 1 [facility] VITAMIN 6-09 tablet by ity of B-6, 25 mg 00:00: mouth 3 [place] tablet 00 (three) Medical times Branch daily. doxylamine Yes [id number] 25mg Take 1 U nivers 25 mg 6-09 tablet by ity of tablet 00:00: mouth at [place] 00 bedtime. Medical Branch Yes [id number] 1{packe Take 1 [facility] vit 6-09 t} Packet by ity of 33-iron-fol 00:00: mouth [place] ic-dha 00 daily. Medical ([facility] Branch + DHA) 29 mg iron-1 mg -250 mg combo pack pyridoxine, 0 Yes [id number] 25mg Take 1 [facility] VITAMIN 6-09 tablet by ity of B-6, 25 mg 00:00: mouth 3 [place] tablet 00 (three) Medical times Branch daily. doxylamine 0 Yes [id number] 25mg Take 1 U nivers 25 mg 6-09 tablet by ity of tablet 00:00: mouth at [place] 00 bedtime. Medical Branch Yes [id number] 1{packe Take 1 [facility] vit 6-09 t} Packet by ity of 33-iron-fol 00:00: mouth [place] ic-dha 00 daily. Medical ([facility] Branch + DHA) 29 mg iron-1 mg -250 mg combo pack pyridoxine, Yes [id number] 25mg Take 1 [facility] VITAMIN 6-09 tablet by ity of B-6, 25 mg 00:00: mouth 3 [place] tablet 00 (three) Medical times Branch daily. doxylamine Yes [id number] 25mg Take 1 U nivers 25 mg 6-09 tablet by ity of tablet 00:00: mouth at [place] 00 bedtime. Medical Branch Yes [id number] 1{packe Take 1 [facility] vit 6-09 t} Packet by ity of 33-iron-fol 00:00: mouth [place] ic-dha 00 daily. Medical ([facility] Branch + DHA) 29 mg iron-1 mg -250 mg combo pack pyridoxine, Yes [id number] 25mg Take 1 [facility] VITAMIN 6-09 tablet by ity of B-6, 25 mg 00:00: mouth 3 [place] tablet 00 (three) Medical times Branch daily. doxylamine Yes [id number] 25mg Take 1 U nivers 25 mg 6-09 tablet by ity of tablet 00:00: mouth at [place] 00 bedtime. Medical Branch Yes [id number] 1{packe Take 1 [facility] vit 6-09 t} Packet by ity of 33-iron-fol 00:00: mouth [place] ic-dha 00 daily. Medical ([facility] Branch + DHA) 29 mg iron-1 mg -250 mg combo pack pyridoxine, Yes [id number] 25mg Take 1 [facility] VITAMIN 6-09 tablet by ity of B-6, 25 mg 00:00: mouth 3 [place] tablet 00 (three) Medical times Branch daily. doxylamine Yes [id number] 25mg Take 1 U nivers 25 mg 6-09 tablet by ity of tablet 00:00: mouth at [place] 00 bedtime. Medical Branch Yes [id number] 1{packe Take 1 [facility] vit 6-09 t} Packet by ity of 33-iron-fol 00:00: mouth [place] ic-dha 00 daily. Medical ([facility] Branch + DHA) 29 mg iron-1 mg -250 mg combo pack pyridoxine, Yes [id number] 25mg Take 1 [facility] VITAMIN 6-09 tablet by ity of B-6, 25 mg 00:00: mouth 3 [place] tablet 00 (three) Medical times Branch daily. doxylamine Yes [id number] 25mg Take 1 U nivers 25 mg 6-09 tablet by ity of tablet 00:00: mouth at [place] 00 bedtime. Medical Branch Yes [id number] 1{packe Take 1 [facility] vit 6-09 t} Packet by ity of 33-iron-fol 00:00: mouth [place] ic-dha 00 daily. Medical ([facility] + DHA) 29 mg iron-1 mg -250 mg combo pack pyridoxine, Yes [id number] 25mg Take 1 [facility] VITAMIN 6-09 tablet by ity of B-6, 25 mg 00:00: mouth 3 [place] tablet 00 (three) Medical times Branch daily. doxylamine Yes [id number] 25mg Take 1 U nivers 25 mg 6-09 tablet by ity of tablet 00:00: mouth at [place] 00 bedtime. Medical Branch Yes [id number] 1{packe Take 1 [facility] vit 6-09 t} Packet by ity of 33-iron-fol 00:00: mouth [place] ic-dha 00 daily. Medical ([facility] Branch + DHA) 29 mg iron-1 mg -250 mg combo pack pyridoxine, Yes [id number] 25mg Take 1 [facility] VITAMIN 6-09 tablet by ity of B-6, 25 mg 00:00: mouth 3 [place] tablet 00 (three) Medical times Branch daily. doxylamine Yes [id number] 25mg Take 1 U nivers 25 mg 6-09 tablet by ity of tablet 00:00: mouth at [place] 00 bedtime. Medical Branch Yes [id number] 1{packe Take 1 [facility] vit 6-09 t} Packet by ity of 33-iron-fol 00:00: mouth [place] ic-dha 00 daily. Medical ([facility] Branch + DHA) 29 mg iron-1 mg -250 mg combo pack pyridoxine, Yes [id number] 25mg Take 1 [facility] VITAMIN 6-09 tablet by ity of B-6, 25 mg 00:00: mouth 3 [place] tablet 00 (three) Medical times Branch daily. doxylamine Yes [id number] 25mg Take 1 U nivers 25 mg 6-09 tablet by ity of tablet 00:00: mouth at [place] 00 bedtime. Medical Branch Yes [id number] 1{packe Take 1 [facility] vit 6-09 t} Packet by ity of 33-iron-fol 00:00: mouth [place] ic-dha 00 daily. Medical ([facility] Branch + DHA) 29 mg iron-1 mg -250 mg combo pack pyridoxine, Yes [id number] 25mg Take 1 [facility] VITAMIN 6-09 tablet by ity of B-6, 25 mg 00:00: mouth 3 [place] tablet 00 (three) Medical times Branch daily. doxylamine Yes [id number] 25mg Take 1 U nivers 25 mg 6-09 tablet by ity of tablet 00:00: mouth at [place] 00 bedtime. Medical Branch Yes [id number] 1{packe Take 1 [facility] vit 6-09 t} Packet by ity of 33-iron-fol 00:00: mouth [place] ic-dha 00 daily. Medical ([facility] Branch + DHA) 29 mg iron-1 mg -250 mg combo pack pyridoxine, Yes [id number] 25mg Take 1 [facility] VITAMIN 6-09 tablet by ity of B-6, 25 mg 00:00: mouth 3 [place] tablet 00 (three) Medical times Branch daily. doxylamine Yes [id number] 25mg Take 1 U nivers 25 mg 6-09 tablet by ity of tablet 00:00: mouth at [place] 00 bedtime. Medical Branch Yes [id number] 1{packe Take 1 [facility] vit 6-09 t} Packet by ity of 33-iron-fol 00:00: mouth [place] ic-dha 00 daily. Medical ([facility] Branch + DHA) 29 mg iron-1 mg -250 mg combo pack pyridoxine, Yes [id number] 25mg Take 1 [facility] VITAMIN 6-09 tablet by ity of B-6, 25 mg 00:00: mouth 3 [place] tablet 00 (three) Medical times Branch daily. doxylamine Yes [id number] 25mg Take 1 U nivers 25 mg 6-09 tablet by ity of tablet 00:00: mouth at [place] 00 bedtime. Medical Branch Yes [id number] 1{packe Take 1 [facility] vit 6-09 t} Packet by ity of 33-iron-fol 00:00: mouth [place] ic-dha 00 daily. Medical ([facility] Branch + DHA) 29 mg iron-1 mg -250 mg combo pack pyridoxine, Yes [id number] 25mg Take 1 [facility] VITAMIN 6-09 tablet by ity of B-6, 25 mg 00:00: mouth 3 [place] tablet 00 (three) Medical times Branch daily. doxylamine Yes [id number] 25mg Take 1 U nivers 25 mg 6-09 tablet by ity of tablet 00:00: mouth at [place] 00 bedtime. Medical Branch Yes [id number] 1{packe Take 1 [facility] vit 6-09 t} Packet by ity of 33-iron-fol 00:00: mouth [place] ic-dha 00 daily. Medical ([facility] Branch + DHA) 29 mg iron-1 mg -250 mg combo pack pyridoxine, Yes [id number] 25mg Take 1 [facility] VITAMIN 6-09 tablet by ity of B-6, 25 mg 00:00: mouth 3 [place] tablet 00 (three) Medical times Branch daily. doxylamine Yes [id number] 25mg Take 1 U nivers 25 mg 6-09 tablet by ity of tablet 00:00: mouth at [place] 00 bedtime. Medical Branch Yes [id number] 1{packe Take 1 [facility] vit 6-09 t} Packet by ity of 33-iron-fol 00:00: mouth [place] ic-dha 00 daily. Medical ([facility] Branch + DHA) 29 mg iron-1 mg -250 mg combo pack pyridoxine, Yes [id number] 25mg Take 1 [facility] VITAMIN 6-09 tablet by ity of B-6, 25 mg 00:00: mouth 3 [place] tablet 00 (three) Medical times Branch daily. doxylamine Yes [id number] 25mg Take 1 U nivers 25 mg 6-09 tablet by ity of tablet 00:00: mouth at [place] 00 bedtime. Medical Branch Yes [id number] 1{packe Take 1 [facility] vit 6-09 t} Packet by ity of 33-iron-fol 00:00: mouth [place] ic-dha 00 daily. Medical ([facility] Branch + DHA) 29 mg iron-1 mg -250 mg combo pack pyridoxine, Yes [id number] 25mg Take 1 [facility] VITAMIN 6-09 tablet by ity of B-6, 25 mg 00:00: mouth 3 [place] tablet 00 (three) Medical times Branch daily. doxylamine Yes [id number] 25mg Take 1 U nivers 25 mg 6-09 tablet by ity of tablet 00:00: mouth at [place] 00 bedtime. Medical Branch Yes [id number] 1{packe Take 1 [facility] vit 6-09 t} Packet by ity of 33-iron-fol 00:00: mouth [place] ic-dha 00 daily. Medical ([facility] Branch + DHA) 29 mg iron-1 mg -250 mg combo pack pyridoxine, Yes [id number] 25mg Take 1 [facility] VITAMIN 6-09 tablet by ity of B-6, 25 mg 00:00: mouth 3 [place] tablet 00 (three) Medical times Branch daily. doxylamine Yes [id number] 25mg Take 1 U nivers 25 mg 6-09 tablet by ity of tablet 00:00: mouth at [place] 00 bedtime. Medical Branch Yes [id number] 1{packe Take 1 [facility] vit 6-09 t} Packet by ity of 33-iron-fol 00:00: mouth [place] ic-dha 00 daily. Medical ([facility] Branch + DHA) 29 mg iron-1 mg -250 mg combo pack pyridoxine, Yes [id number] 25mg Take 1 [facility] VITAMIN 6-09 tablet by ity of B-6, 25 mg 00:00: mouth 3 [place] tablet 00 (three) Medical times Branch daily. doxylamine Yes [id number] 25mg Take 1 U nivers 25 mg 6-09 tablet by ity of tablet 00:00: mouth at [place] 00 bedtime. Medical Branch Yes [id number] 1{packe Take 1 [facility] vit 6-09 t} Packet by ity of 33-iron-fol 00:00: mouth [place] ic-dha 00 daily. Medical ([facility] Branch + DHA) 29 mg iron-1 mg -250 mg combo pack pyridoxine, Yes [id number] 25mg Take 1 [facility] VITAMIN 6-09 tablet by ity of B-6, 25 mg 00:00: mouth 3 [place] tablet 00 (three) Medical times Branch daily. doxylamine Yes [id number] 25mg Take 1 U nivers 25 mg 6-09 tablet by ity of tablet 00:00: mouth at [place] 00 bedtime. Medical Branch Yes [id number] 1{packe Take 1 [facility] vit 6-09 t} Packet by ity of 33-iron-fol 00:00: mouth [place] ic-dha 00 daily. Medical ([facility] + DHA) 29 mg iron-1 mg -250 mg combo pack pyridoxine, Yes [id number] 25mg Take 1 [facility] VITAMIN 6-09 tablet by ity of B-6, 25 mg 00:00: mouth 3 [place] tablet 00 (three) Medical times Branch daily. doxylamine Yes [id number] 25mg Take 1 U nivers 25 mg 6-09 tablet by ity of tablet 00:00: mouth at [place] 00 bedtime. Medical Branch Yes [id number] 1{packe Take 1 [facility] vit 6-09 t} Packet by ity of 33-iron-fol 00:00: mouth [place] ic-dha 00 daily. Medical ([facility] Branch + DHA) 29 mg iron-1 mg -250 mg combo pack pyridoxine, Yes [id number] 25mg Take 1 [facility] VITAMIN 6-09 tablet by ity of B-6, 25 mg 00:00: mouth 3 [place] tablet 00 (three) Medical times Branch daily. doxylamine Yes [id number] 25mg Take 1 U nivers 25 mg 6-09 tablet by ity of tablet 00:00: mouth at [place] 00 bedtime. Medical Branch Yes [id number] 1{packe Take 1 [facility] vit 6-09 t} Packet by ity of 33-iron-fol 00:00: mouth [place] ic-dha 00 daily. Medical ([facility] Branch + DHA) 29 mg iron-1 mg -250 mg combo pack pyridoxine, Yes [id number] 25mg Take 1 [facility] VITAMIN 6-09 tablet by ity of B-6, 25 mg 00:00: mouth 3 [place] tablet 00 (three) Medical times Branch daily. doxylamine Yes [id number] 25mg Take 1 U nivers 25 mg 6-09 tablet by ity of tablet 00:00: mouth at [place] 00 bedtime. Medical Branch Yes [id number] 1{packe Take 1 [facility] vit 6-09 t} Packet by ity of 33-iron-fol 00:00: mouth [place] ic-dha 00 daily. Medical ([facility] Branch + DHA) 29 mg iron-1 mg -250 mg combo pack pyridoxine, Yes [id number] 25mg Take 1 [facility] VITAMIN 6-09 tablet by ity of B-6, 25 mg 00:00: mouth 3 [place] tablet 00 (three) Medical times Branch daily. doxylamine Yes [id number] 25mg Take 1 U nivers 25 mg 6-09 tablet by ity of tablet 00:00: mouth at [place] 00 bedtime. Medical Branch Yes [id number] 1{packe Take 1 [facility] vit 6-09 t} Packet by ity of 33-iron-fol 00:00: mouth [place] ic-dha 00 daily. Medical ([facility] Branch + DHA) 29 mg iron-1 mg -250 mg combo pack pyridoxine, Yes [id number] 25mg Take 1 [facility] VITAMIN 6-09 tablet by ity of B-6, 25 mg 00:00: mouth 3 [place] tablet 00 (three) Medical times Branch daily. doxylamine Yes [id number] 25mg Take 1 U nivers 25 mg 6-09 tablet by ity of tablet 00:00: mouth at [place] 00 bedtime. Medical Branch Yes [id number] 1{packe Take 1 [facility] vit 6-09 t} Packet by ity of 33-iron-fol 00:00: mouth [place] ic-dha 00 daily. Medical ([facility] Branch + DHA) 29 mg iron-1 mg -250 mg combo pack pyridoxine, Yes [id number] 25mg Take 1 [facility] VITAMIN 6-09 tablet by ity of B-6, 25 mg 00:00: mouth 3 [place] tablet 00 (three) Medical times Branch daily. doxylamine Yes [id number] 25mg Take 1 U nivers 25 mg 6-09 tablet by ity of tablet 00:00: mouth at [place] 00 bedtime. Medical Branch Yes [id number] 1{packe Take 1 [facility] vit 6-09 t} Packet by ity of 33-iron-fol 00:00: mouth [place] ic-dha 00 daily. Medical ([facility] Branch + DHA) 29 mg iron-1 mg -250 mg combo pack pyridoxine, Yes [id number] 25mg Take 1 [facility] VITAMIN 6-09 tablet by ity of B-6, 25 mg 00:00: mouth 3 [place] tablet 00 (three) Medical times Branch daily. doxylamine Yes [id number] 25mg Take 1 U nivers 25 mg 6-09 tablet by ity of tablet 00:00: mouth at [place] 00 bedtime. Medical Branch Yes [id number] 1{packe Take 1 [facility] vit 6-09 t} Packet by ity of 33-iron-fol 00:00: mouth [place] ic-dha 00 daily. Medical ([facility] Branch + DHA) 29 mg iron-1 mg -250 mg combo pack pyridoxine, Yes [id number] 25mg Take 1 [facility] VITAMIN 6-09 tablet by ity of B-6, 25 mg 00:00: mouth 3 [place] tablet 00 (three) Medical times Branch daily. doxylamine Yes [id number] 25mg Take 1 U nivers 25 mg 6-09 tablet by ity of tablet 00:00: mouth at [place] 00 bedtime. Medical Branch Yes [id number] 1{packe Take 1 [facility] vit 6-09 t} Packet by ity of 33-iron-fol 00:00: mouth [place] ic-dha 00 daily. Medical ([facility] Branch + DHA) 29 mg iron-1 mg -250 mg combo pack pyridoxine, Yes [id number] 25mg Take 1 [facility] VITAMIN 6-09 tablet by ity of B-6, 25 mg 00:00: mouth 3 [place] tablet 00 (three) Medical times Branch daily. doxylamine Yes [id number] 25mg Take 1 U nivers 25 mg 6-09 tablet by ity of tablet 00:00: mouth at [place] 00 bedtime. Medical Branch Yes [id number] 1{packe Take 1 [facility] vit 6-09 t} Packet by ity of 33-iron-fol 00:00: mouth [place] ic-dha 00 daily. Medical ([facility] Branch + DHA) 29 mg iron-1 mg -250 mg combo pack pyridoxine, Yes [id number] 25mg Take 1 [facility] VITAMIN 6-09 tablet by ity of B-6, 25 mg 00:00: mouth 3 [place] tablet 00 (three) Medical times Branch daily. doxylamine Yes [id number] 25mg Take 1 U nivers 25 mg 6-09 tablet by ity of tablet 00:00: mouth at [place] 00 bedtime. Medical Branch Yes [id number] 1{packe Take 1 [facility] vit 6-09 t} Packet by ity of 33-iron-fol 00:00: mouth [place] ic-dha 00 daily. Medical ([facility] Branch + DHA) 29 mg iron-1 mg -250 mg combo pack pyridoxine, Yes [id number] 25mg Take 1 [facility] VITAMIN 6-09 tablet by ity of B-6, 25 mg 00:00: mouth 3 [place] tablet 00 (three) Medical times Branch daily. doxylamine Yes [id number] 25mg Take 1 U nivers 25 mg 6-09 tablet by ity of tablet 00:00: mouth at [place] 00 bedtime. Medical Branch Yes [id number] 1{packe Take 1 [facility] vit 6-09 t} Packet by ity of 33-iron-fol 00:00: mouth [place] ic-dha 00 daily. Medical ([facility] Branch + DHA) 29 mg iron-1 mg -250 mg combo pack pyridoxine, Yes [id number] 25mg Take 1 [facility] VITAMIN 6-09 tablet by ity of B-6, 25 mg 00:00: mouth 3 [place] tablet 00 (three) Medical times Branch daily. doxylamine Yes [id number] 25mg Take 1 U nivers 25 mg 6-09 tablet by ity of tablet 00:00: mouth at [place] 00 bedtime. Medical Branch Yes [id number] 1{packe Take 1 [facility] vit 6-09 t} Packet by ity of 33-iron-fol 00:00: mouth [place] ic-dha 00 daily. Medical ([facility] Branch + DHA) 29 mg iron-1 mg -250 mg combo pack pyridoxine, Yes [id number] 25mg Take 1 [facility] VITAMIN 6-09 tablet by ity of B-6, 25 mg 00:00: mouth 3 [place] tablet 00 (three) Medical times Branch daily. doxylamine Yes [id number] 25mg Take 1 U nivers 25 mg 6-09 tablet by ity of tablet 00:00: mouth at [place] 00 bedtime. Medical Branch Yes [id number] 1{packe Take 1 [facility] vit 6-09 t} Packet by ity of 33-iron-fol 00:00: mouth [place] ic-dha 00 daily. Medical ([facility] Branch + DHA) 29 mg iron-1 mg -250 mg combo pack pyridoxine, Yes [id number] 25mg Take 1 [facility] VITAMIN 6-09 tablet by ity of B-6, 25 mg 00:00: mouth 3 [place] tablet 00 (three) Medical times Branch daily. doxylamine Yes [id number] 25mg Take 1 U nivers 25 mg 6-09 tablet by ity of tablet 00:00: mouth at [place] 00 bedtime. Medical Branch Yes [id number] 1{packe Take 1 [facility] vit 6-09 t} Packet by ity of 33-iron-fol 00:00: mouth [place] ic-dha 00 daily. Medical ([facility] Branch + DHA) 29 mg iron-1 mg -250 mg combo pack pyridoxine, Yes [id number] 25mg Take 1 [facility] VITAMIN 6-09 tablet by ity of B-6, 25 mg 00:00: mouth 3 [place] tablet 00 (three) Medical times Branch daily. doxylamine Yes [id number] 25mg Take 1 U nivers 25 mg 6-09 tablet by ity of tablet 00:00: mouth at [place] 00 bedtime. Medical Branch Yes [id number] 1{packe Take 1 [facility] vit 6-09 t} Packet by ity of 33-iron-fol 00:00: mouth [place] ic-dha 00 daily. Medical ([facility] Branch + DHA) 29 mg iron-1 mg -250 mg combo pack pyridoxine, Yes [id number] 25mg Take 1 [facility] VITAMIN 6-09 tablet by ity of B-6, 25 mg 00:00: mouth 3 [place] tablet 00 (three) Medical times Branch daily. doxylamine Yes [id number] 25mg Take 1 U nivers 25 mg 6-09 tablet by ity of tablet 00:00: mouth at [place] 00 bedtime. Medical Branch Yes [id number] 1{packe Take 1 [facility] vit 6-09 t} Packet by ity of 33-iron-fol 00:00: mouth [place] ic-dha 00 daily. Medical ([facility] Branch + DHA) 29 mg iron-1 mg -250 mg combo pack pyridoxine, Yes [id number] 25mg Take 1 [facility] VITAMIN 6-09 tablet by ity of B-6, 25 mg 00:00: mouth 3 [place] tablet 00 (three) Medical times Branch daily. doxylamine Yes [id number] 25mg Take 1 U nivers 25 mg 6-09 tablet by ity of tablet 00:00: mouth at [place] 00 bedtime. Medical Branch Yes [id number] 1{packe Take 1 [facility] vit 6-09 t} Packet by ity of 33-iron-fol 00:00: mouth [place] ic-dha 00 daily. Medical ([facility] Branch + DHA) 29 mg iron-1 mg -250 mg combo pack pyridoxine, Yes [id number] 25mg Take 1 [facility] VITAMIN 6-09 tablet by ity of B-6, 25 mg 00:00: mouth 3 [place] tablet 00 (three) Medical times Branch daily. doxylamine Yes [id number] 25mg Take 1 U nivers 25 mg 6-09 tablet by ity of tablet 00:00: mouth at [place] 00 bedtime. Medical Branch Yes [id number] 1{packe Take 1 [facility] vit 6-09 t} Packet by ity of 33-iron-fol 00:00: mouth [place] ic-dha 00 daily. Medical (SELECT-OB Branch + DHA) 29 mg iron-1 mg -250 mg combo pack pyridoxine, Yes [id number] 25mg Take 1 Univers VITAMIN 6-09 tablet by ity of B-6, 25 mg 00:00[place] (three[place] Medical times Branch daily. doxylamine Yes [id number] 25mg Take 1 U nivers 25 mg 6-09 tablet by ity of tablet 00:00: mouth at [place] 00 bedtime. Medical Branch Yes [id number] 1{packe Take 1 Univers vit 6-09 t} Packet by ity of 33-iron-fol 00:00: mouth [place] ic-dha 00 daily. Medical (SELECT-OB Branch + DHA) 29 mg iron-1 mg -250 mg combo pack pyridoxine, Yes [id number] 25mg Take 1 Univers VITAMIN 6-09 tablet by ity of B-6, 25 mg 00:00: [place] (three) Medical times Branch daily. doxylamine Yes [id number] 25mg Take 1 U nivers 25 mg 6-09 tablet by ity of tablet 00:00: mouth at [place] 00 bedtime. Medical Branch Yes [id number] 1{packe Take 1 Univers vit 6-09 t} Packet by ity of 33-iron-fol 00:00: mouth [place] ic-dha 00 daily. Medical (SELECT-OB Branch + DHA) 29 mg iron-1 mg -250 mg combo pack pyridoxine, Yes [id number] 25mg Take 1 Univers VITAMIN 6-09 tablet by ity of B-6, 25 mg 00:00: [place] (three) Medical times Branch daily. 2022- No [id number] 1{packe Take 1 Univers vit 6-12-04 t} Packet by ity of 33-iron-fol 00:00[place] :00 daily. Medical (SELECT-OB Branch + DHA) 29 mg iron-1 mg -250 mg combo pack pyridoxine, 2022- No [id number] 25mg Take 1 Univers VITAMIN 612-04 tablet by ity of B-6, 25 mg 00:00: 00:00 mouth 3 [place] tablet 00 :00 (three) Medical times Branch daily. doxylamine 2022- No [id number] 25mg Take 1 Univers 25 mg 05-07 tablet by ity of tablet 00:00: 00:00 mouth at [place] 00 :00 bedtime. [facility] Branch Vital Signs Vital Name Observation Time Observation Value Comments Source Systolic blood 2023-01-22 15:12:00 136 mm[Hg] Univer sity [facility] Diastolic blood 2023-01-22 15:12:00 85 mm[Hg] [facility] 2023-01-22 15:12:00 88 /min [facility] Body temperature 2023-01-22 15:12:00 36.78 Nellie [facility] Respiratory rate 2023-01-22 15:12:00 18 /min [facility] Body height 2023-01-22 15:12:00 163.8 cm [facility] Body weight 2023-01-22 15:12:00 118.389 kg [facility] BMI 2023-01-22 15:12:00 44.11 kg/m2 [facility] Systolic blood 2023-01-13 15:41:00 124 mm[Hg] Univer sity [facility] Diastolic blood 2023-01-13 15:41:00 85 mm[Hg] Unive rsity [facility] Heart rate 2023-01-13 15:41:00 63 /min [facility] Respiratory rate 2023-01-13 15:41:00 18 /min [facility] [place] [facility] Body height 2023-01-13 15:41:00 163.8 cm [facility] [place] [facility] Body weight 2023-01-13 15:41:00 117.482 kg [facility] [place] [facility] BMI 2023-01-13 15:41:00 43.77 kg/m2 [facility] [place] [facility] Systolic blood 2022-12-25 15:27:00 120 mm[Hg] Univer sity of [facility] [place] [facility] Diastolic blood 2022-12-25 15:27:00 82 mm[Hg] Unive rsity of [facility] [place] [facility] Heart rate 2022-12-25 15:27:00 64 /min [facility] [place] [facility] Body temperature 2022-12-25 15:27:00 36.33 Nellie [facility] [place] [facility] Respiratory rate 2022-12-25 15:27:00 18 /min [facility] [place] [facility] Body height 2022-12-25 15:27:00 162.6 cm [facility] [place] [facility] Body weight 2022-12-25 15:27:00 117.799 kg [facility] [place] [facility] BMI 2022-12-25 15:27:00 44.58 kg/m2 [facility] [place] [facility] Systolic blood 2022-12-11 16:07:00 130 mm[Hg] Univer sity of [facility] [place] [facility] Diastolic blood 2022-12-11 16:07:00 84 mm[Hg] Unive rsity of [facility] [place] [facility] Heart rate 2022-12-11 16:07:00 90 /min [facility] [place] [facility] Body temperature 2022-12-11 16:07:00 36.67 Nellie [facility] [place] [facility] Respiratory rate 2022-12-11 16:07:00 18 /min [facility] [place] [facility] Body height 2022-12-11 16:07:00 162.6 cm [facility] [place] [facility] Body weight 2022-12-11 16:07:00 118.842 kg [facility] [place] [facility] BMI 2022-12-11 16:07:00 44.97 kg/m2 [facility] [place] [facility] Heart rate 2022-12-04 21:00:00 80 /min [facility] [place] [facility] Body temperature 2022-12-04 21:00:00 36.61 Nellie [facility] [place] [facility] Respiratory rate 2022-12-04 21:00:00 17 /min [facility] [place] [facility] Systolic blood 2022-12-04 18:00:00 132 mm[Hg] Univer sity of [facility] [place] [facility] Diastolic blood 2022-12-04 18:00:00 78 mm[Hg] Unive rsity of [facility] [place] [facility] Oxygen saturation in 2022-12-04 18:00:00 100 /min University of Arterial blood by [facility] Pulse oximetry Branch Systolic blood 2022-12-03 14:50:00 155 mm[Hg] Univer sity of [facility] [place] [facility] Diastolic blood 2022-12-03 14:50:00 86 mm[Hg] Unive rsity of [facility] [place] [facility] Heart rate 2022-12-03 14:50:00 104 /min [facility] [place] [facility] Body temperature 2022-12-03 14:50:00 36.56 Nellie [facility] [place] [facility] Respiratory rate 2022-12-03 14:50:00 18 /min [facility] [place] [facility] Oxygen saturation in 2022-12-03 14:50:00 98 /min University of Arterial blood by [facility] Pulse oximetry Branch Respiratory rate 2022-12-03 14:43:00 31 /min [facility] [place] [facility] Systolic blood 2022-11-30 15:14:00 120 mm[Hg] Univer sity of [facility] [place] [facility] Diastolic blood 2022-11-30 15:14:00 81 mm[Hg] Unive rsity of [facility] [place] [facility] Heart rate 2022-11-30 15:14:00 108 /min [facility] [place] [facility] Body temperature 2022-11-30 15:14:00 36.67 Nellie [facility] [place] [facility] Respiratory rate 2022-11-30 15:14:00 18 /min [facility] [place] [facility] Body height 2022-11-30 15:14:00 162.6 cm [facility] [place] [facility] Body weight 2022-11-30 15:14:00 123.469 kg [facility] [place] [facility] BMI 2022-11-30 15:14:00 46.72 kg/m2 [facility] [place] [facility] Systolic blood 2022-11-26 15:19:00 132 mm[Hg] Univer sity [facility] [place] [facility] Diastolic blood 2022-11-26 15:19:00 87 mm[Hg] Unive rsity of [facility] [place] [facility] Heart rate 2022-11-26 15:19:00 89 /min [facility] [place] [facility] Body temperature 2022-11-26 15:19:00 36.78 Nellie [facility] [place] [facility] Body height 2022-11-26 15:19:00 162.6 cm [facility] [place] [facility] Body weight 2022-11-26 15:19:00 122.653 kg [facility] [place] [facility] BMI 2022-11-26 15:19:00 46.41 kg/m2 Universi ty of [facility] Systolic blood 2022-11-24 15:07:00 119 mm[Hg] Univer sity of [facility] Diastolic blood 2022-11-24 15:07:00 82 mm[Hg] Unive rsity of pressure [place] [facility] Heart rate 2022-11-24 15:07:00 86 /min [facility] [place] [facility] Body temperature 2022-11-24 15:07:00 36.67 Nellie Univ ersity of [facility] Branch Respiratory rate 2022-11-24 15:07:00 16 /min Univ ersity of [facility] Branch Body height 2022-11-24 15:07:00 162.6 cm [facility] [place] [facility] Body weight 2022-11-24 15:07:00 122.789 kg [facility] [place] [facility] BMI 2022-11-24 15:07:00 46.47 kg/m2 [facility] [place] [facility] Oxygen saturation in 2022-11-24 15:07:00 97 /min University of Arterial blood by [facility] Pulse oximetry Branch Systolic blood 2022-11-16 15:30:00 121 mm[Hg] Univer sity of [facility] [place] [facility] Diastolic blood 2022-11-16 15:30:00 85 mm[Hg] Unive rsity of [facility] [place] [facility] Heart rate 2022-11-16 15:30:00 85 /min [facility] [place] [facility] Body temperature 2022-11-16 15:30:00 36.78 Nellie [facility] [place] [facility] Respiratory rate 2022-11-16 15:30:00 16 /min [facility] [place] [facility] Body height 2022-11-16 15:30:00 162.6 cm [facility] [place] [facility] Body weight 2022-11-16 15:30:00 122.879 kg [facility] [place] [facility] BMI 2022-11-16 15:30:00 46.50 kg/m2 [facility] [place] [facility] Oxygen saturation in 2022-11-16 15:30:00 100 /min [facility] of Arterial blood by [place] [facility] Pulse oximetry Branch Systolic blood 2022-11-13 15:53:00 123 mm[Hg] Univer sity of [facility] [place] [facility] Diastolic blood 2022-11-13 15:53:00 74 mm[Hg] Unive rsity of pressure [place] [facility] Heart rate 2022-11-13 15:53:00 92 /min [facility] [place] [facility] Body temperature 2022-11-13 15:53:00 36.56 Nellie [facility] [place] [facility] Respiratory rate 2022-11-13 15:53:00 16 /min [facility] [place] [facility] Body height 2022-11-13 15:53:00 162.6 cm [facility] [place] [facility] Body weight 2022-11-13 15:53:00 123.56 kg [facility] [place] [facility] BMI 2022-11-13 15:53:00 46.76 kg/m2 [facility] [place] [facility] Oxygen saturation in 2022-11-13 15:53:00 98 /min [facility] Ar[facility]ial blood by [place] [employer] [facility] Pulse oximetry Branch Systolic blood 2022-11-09 15:19:00 119 mm[Hg] Univer sity of [facility] [place] [facility] Diastolic blood 2022-11-09 15:19:00 79 mm[Hg] Unive rsity of [facility] [place] [facility] Heart rate 2022-11-09 15:19:00 91 /min [facility] [place] [facility] Body temperature 2022-11-09 15:19:00 36.67 Nellie [facility] [place] [facility] Respiratory rate 2022-11-09 15:19:00 18 /min [facility] [place] [facility] Body height 2022-11-09 15:19:00 162.6 cm [facility] [place] [facility] Body weight 2022-11-09 15:19:00 122.471 kg [facility] [place] [facility] BMI 2022-11-09 15:19:00 46.35 kg/m2 [facility] [place] [facility] Systolic blood 2022-11-06 15:40:00 132 mm[Hg] Univer sity of [facility] [place] [facility] Diastolic blood 2022-11-06 15:40:00 83 mm[Hg] Unive rsity of [facility] [place] [facility] Heart rate 2022-11-06 15:40:00 98 /min [facility] [place] [facility] Body temperature 2022-11-06 15:40:00 36.67 Nellie [facility] [place] [facility] Respiratory rate 2022-11-06 15:40:00 18 /min [facility] [place] [facility] Body height 2022-11-06 15:40:00 162.6 cm [facility] [place] [facility] Body weight 2022-11-06 15:40:00 122.018 kg [facility] [place] [facility] BMI 2022-11-06 15:40:00 46.17 kg/m2 [facility] [place] [facility] Systolic blood 2022-11-03 15:54:00 119 mm[Hg] Univer sity of [facility] [place] [facility] Diastolic blood 2022-11-03 15:54:00 83 mm[Hg] Unive rsity of [facility] [place] [facility] Heart rate 2022-11-03 15:54:00 99 /min [facility] [place] [facility] Body temperature 2022-11-03 15:54:00 36.78 Nellie [facility] [place] [facility] Respiratory rate 2022-11-03 15:54:00 18 /min [facility] [place] [facility] Body height 2022-11-03 15:54:00 162.6 cm [facility] [place] [facility] Body weight 2022-11-03 15:54:00 122.018 kg [facility] [place] [facility] BMI 2022-11-03 15:54:00 46.17 kg/m2 [facility] [place] [facility] Systolic blood 2022-10-30 15:48:00 124 mm[Hg] Univer sity of [facility] [place] [facility] Diastolic blood 2022-10-30 15:48:00 79 mm[Hg] Unive rsity of [facility] [place] [facility] Heart rate 2022-10-30 15:46:00 93 /min [facility] [place] [facility] Respiratory rate 2022-10-30 15:46:00 18 /min [facility] [place] [facility] Body height 2022-10-30 15:46:00 162.6 cm [facility] [place] [facility] Body weight 2022-10-30 15:46:00 122.925 kg [facility] [place] [facility] BMI 2022-10-30 15:46:00 46.52 kg/m2 [facility] [place] [facility] Systolic blood 2022-10-16 16:03:00 125 mm[Hg] Univer sity of [facility] [place] [facility] Diastolic blood 2022-10-16 16:03:00 87 mm[Hg] Unive rsity of [facility] [place] [facility] Heart rate 2022-10-16 16:03:00 97 /min [facility] [place] [facility] Body temperature 2022-10-16 16:03:00 36.78 Nellie [facility] [place] [facility] Respiratory rate 2022-10-16 16:03:00 16 /min [facility] [place] [facility] Body height 2022-10-16 16:03:00 165.1 cm [facility] [place] [facility] Body weight 2022-10-16 16:03:00 122.607 kg [facility] [place] [facility] BMI 2022-10-16 16:03:00 44.98 kg/m2 [facility] [place] [facility] Oxygen saturation in 2022-10-16 16:03:00 99 /min University of Arterial blood by [facility] Pulse oximetry Branch Systolic blood 2022-10-02 15:35:00 124 mm[Hg] Univer sity of [facility] [place] [facility] Diastolic blood 2022-10-02 15:35:00 79 mm[Hg] Unive rsity of [facility] [place] [facility] Heart rate 2022-10-02 15:35:00 95 /min [facility] [place] [facility] Body temperature 2022-10-02 15:35:00 36.89 Nellie [facility] [place] [facility] Respiratory rate 2022-10-02 15:35:00 16 /min [facility] [place] [facility] Body height 2022-10-02 15:35:00 165.1 cm [facility] [place] [facility] Body weight 2022-10-02 15:35:00 120.748 kg [facility] [place] [facility] BMI 2022-10-02 15:35:00 44.30 kg/m2 [facility] [place] [facility] Oxygen saturation in 2022-10-02 15:35:00 98 /min University of Arterial blood by [facility] Pulse oximetry Branch Systolic blood 2022-09-04 14:33:00 115 mm[Hg] Univer sity of [facility] [place] [facility] Diastolic blood 2022-09-04 14:33:00 78 mm[Hg] Unive rsity of [facility] [place] [facility] Heart rate 2022-09-04 14:33:00 95 /min [facility] [place] [facility] Body temperature 2022-09-04 14:33:00 36.72 Nellie [facility] [place] [facility] Respiratory rate 2022-09-04 14:33:00 16 /min [facility] [place] [facility] Body height 2022-09-04 14:33:00 165.1 cm [facility] [place] [facility] Body weight 2022-09-04 14:33:00 121.473 kg [facility] [place] [facility] BMI 2022-09-04 14:33:00 44.56 kg/m2 [facility] [place] [facility] Oxygen saturation in 2022-09-04 14:33:00 98 /min University of Arterial blood by [facility] Pulse oximetry Branch Systolic blood 2022-08-12 21:55:00 136 mm[Hg] Univer sity of [facility] [place] [facility] Diastolic blood 2022-08-12 21:55:00 79 mm[Hg] Unive rsity of [facility] [place] [facility] Heart rate 2022-08-12 21:55:00 87 /min [facility] [place] [facility] Respiratory rate 2022-08-12 21:55:00 22 /min [facility] [place] [facility] Oxygen saturation in 2022-08-12 21:55:00 99 /min University of Arterial blood by [facility] Pulse oximetry Branch Body temperature 2022-08-12 16:42:00 36.44 Nellie [facility] [place] [facility] Body height 2022-08-12 16:42:00 165.1 cm [facility] [place] [facility] Body weight 2022-08-12 16:42:00 121.609 kg [facility] [place] [facility] BMI 2022-08-12 16:42:00 44.61 kg/m2 [facility] Systolic blood 2022-08-04 14:45:00 128 mm[Hg] Univer sity of pressure [facility] Diastolic blood 2022-08-04 14:45:00 84 mm[Hg] Unive rsity of pressure [facility] Heart rate 2022-08-04 14:45:00 93 /min [facility] Body temperature 2022-08-04 14:45:00 36.83 Nellie [facility] Respiratory rate 2022-08-04 14:45:00 19 /min [facility] Body height 2022-08-04 14:45:00 165.1 cm [facility] Body weight 2022-08-04 14:45:00 123.197 kg [facility] BMI 2022-08-04 14:45:00 45.20 kg/m2 [facility] Procedures Procedure Date / Time Performing Clinician Source Performed DME/SUPPLY JUSTIFICATION 2022-12-11 06:01:00 Doctor Unassigned, [facility] CBC WITH DIFF 2022-12-04 11:15:00 Troy [facility] CBC WITH DIFF 2022-12-04 11:15:00 Troy [facility] CENTRAL NEURAXIAL BLOCK 2022-12-03 13:59:36 Madhu Reis [facility] SECTION 2022-12-03 13:19:00 Tory [facility] SECTION 2022-12-03 13:19:00 Troy [facility] COVID-19 (ID NOW RAPID 2022-12-03 12:27:[address] [facility] TESTING) Medical Branch LAB ONLY COVID 2022-12-03 12:27:00 Troy [facility] COVID-19 (ID NOW RAPID 2022-12-03 12:27:[address] [facility] TESTING) Medical Branch LAB ONLY COVID 2022-12-03 12:27:00 Simmons, [facility] [place] INTERPRETATION [facility] POCT GLUCOSE (AUTOMATED) 2022-12-03 11:57:00 Yrn Simmons Uni versity of [place] [facility] POCT GLUCOSE (AUTOMATED) 2022-12-03 11:57:00 Yrn Simmons [facility] HOSPITAL ADMISSION 2022-12-02 06:01:00 Doctor Unassigned, [facility] Name Medical [place] CBC WITH DIFF 2022-12-01 16:23:00 Yrn Simmons [place] [facility] HIV 1/2 AG-AB WITH REFLEX 2022-12-01 16:23:00 [facility] [place] [facility] COVID-19 (ID NOW RAPID 2022-12-01 16:23:[address] [facility] TESTING) Medical Branch ASSIGNMENT OF BENEFITS 2022-12-01 15:33:23 Doctor Unassjenna, Un [facility] [place] NON-STRESS TEST 2022-11-30 20:25:59 Dalia Barbosa [facility] [place] [facility] DIABETES TESTING REPORTS 2022-11-30 06:01:00 Doctor Unassjenna, [facility] [place] POCT URINALYSIS W/O 2022-11-30 00:00:00 Dalia Barbosa [facility] SPECIFIC GRAVITY Medical Branch NON-STRESS TEST 2022-11-26 16:45:[address] [facility] POCT URINALYSIS W/O 2022-11-26 00:00:00 Yrn Simmons [facility] SPECIFIC GRAVITY Medical Branch NON-STRESS TEST 2022-11-24 15:47:53 Dalia Barbosa [facility] [place] [facility] NON-STRESS TEST 2022-11-16 22:13:45 Dalia Barbosa [facility] [place] [facility] NON-STRESS TEST 2022-11-13 19:01:43 Dalia Barbosa [facility] [place] [facility] NON-STRESS TEST 2022-11-09 16:08:00 Dalia Barbosa [facility] [place] [facility] DIABETES TESTING REPORTS 2022-11-09 06:01:00 Doctor David [facility] NON-STRESS TEST 2022-11-06 16:15:[address] [facility] NON-STRESS TEST 2022-11-03 16:28:04 Dalia Barbosa [facility] POCT URINALYSIS W/O 2022-11-03 00:00:00 [facility] NON-STRESS TEST 2022-10-30 16:38:33 Dalia Barbosa [facility] DIABETES TESTING REPORTS 2022-10-30 06:01:00 Doctor Hernandez [facility] POCT URINALYSIS W/O 2022-10-30 00:00:00 Yrn Simmons [facility] SPECIFIC GRAVITY [facility] DIABETES TESTING REPORTS 2022-10-16 06:01:00 Doctor Hernandez [facility] POCT URINALYSIS W/O 2022-10-16 00:00:[address] [facility] POCT URINALYSIS W/O 2022-10-02 00:00:00 Yrn Simmons [facility] SPECIFIC GRAVITY [facility] POCT URINALYSIS W/O 2022-09-04 00:00:00 Chelsey [facility] SPECIFIC [facility] PATIENT QUESTIONNAIRE 2022-08-20 05:01:00 Doctor David [facility] COVID-19 (ID NOW RAPID 2022-08-12 21:02:[address] [facility] TESTING) Medical Branch MAGNESIUM 2022-08-12 19:07:00 Estela Martinez [facility] BASIC METABOLIC PANEL 2022-08-12 19:07:00 Yrn Shaw [facility] (NA, K, CL, CO2, GLUCOSE, Medica l Branch BUN, CREATININE, CA) CBC WITH DIFF 2022-08-12 19:07:00 Yrn Shaw [facility] URINALYSIS 2022-08-12 19:07:00 Yrn Shaw [place] [facility] POCT TEST 2022-08-12 19:02:00 Yrn Shaw [facility] CONSENT/REFUSAL FOR 2022-08-12 15:59:49 Doctor Unassjenna, [facility] DIAGNOSIS AND TREATMENT [facility] POCT URINALYSIS W/O 2022-08-04 14:56:00 Yrn Simmons [facility] SPECIFIC GRAVITY [facility] DIABETES TESTING REPORTS 2022-08-04 05:01:00 Doctor Unassigned, [facility] DIABETES TESTING REPORTS 2022-07-28 05:01:00 Doctor Unassigned, [facility] DIABETES TESTING REPORTS 2022-07-10 05:01:00 Doctor Unassigned, [facility] Encounters Start End Encounter Admission Attending Care Care Encounter Source Date/Time Date/Time Type Type Clinicians Facility Department ID 2023-05-03 2023-05-03 Telephone Gary [facility] [id number] [facility] 00:00:00 00:00:00 Krystyna CROCKETT [id number] it y of PEDIATRIC 4.2.7.2.686 [facility] [id number] [address] 2023-04-16 2023-04-16 Outpatient R YRN [facility] [id number] [facility] 08:30:00 08:30:00 ity of [facility] 2023-01-24 2023-01-24 [facility] [id number] [facility] 00:00:00 00:00:00 Dalia CROCKETT [id number] it y of WOMEN'S [id number] [facility] [id number] [address] 2023-01-22 2023-01-22 Outpatient R YRN [facility] [id number] [facility] 09:00:00 09:17:56 ity [facility] 2023-01-22 2023-01-22 Office Troy [facility] [id number] Univers 09:00:00 09:17:56 Visit Lucho CROCKETT [id number] [place] [id number] [address] 2023-01-13 2023-01-13 Outpatient R DALIA BARBOSA [facility] B [id number] Univers 09:30:00 10:02:05 TRIDALIA PAULINO ity [facility] 2023-01-13 2023-01-13 Routine [facility] [id number] Univers 09:30:00 10:02:05 Dalia CROCKETT 350.1.13.10 i ty of [place] 4[place]2.[place] [id number] [address] 2023-01-01 2023-01-01 Outpatient R [facility]OY [facility] [id number] Univers 10:00:00 10:00:00 ity [facility] 2022-12-30 2022-12-30 Telephone Gary [facility] [id number] Univers 00:00:00 00:00:00 Krystyna CROCKETT [id number] [place] [facility] [id number] [address] 2022-12-30 2022-12-30 Case Troy [facility] [id number] Univers 00:00:00 00:00:00 Management Lucho LEWIS [id number] [place] [id number] In dical [address] 2022-12-25 2022-12-25 Outpatient R YRN [facility] [id number] Univers 09:15:00 09:53:28 ity [facility] 2022-12-25 2022-12-25 Routine [facility] [id number] Univers 09:15:00 09:53:28 Lucho CROCKETT [id number] i ty of [place] [id number] [id number] [facility] [address] [place] 2022-12-25 2022-12-25 Patient Yrn Simmons [id number] Univers 00:00:00 00:00:00 Secure Msg Lucho CROCKETT [id number] ity [id number] [id number] [address] 2022-12-11 2022-12-11 Outpatient R YRN [facility] [id number] Univers 09:30:00 10:26:07 ity of [place] [facility] [facility] 2022-12-11 2022-12-11 Routine Yrn Simmons [facility] ELIF 1.2.840.114 [id number] Univers 09:30:00 10:26:07 Lucho CROCKETT 350.1.13.10 i ty of Visit WOMEN'[place].2.[place] [facility] [id number] [address] 2022-12-11 2022-12-11 Orders Doctor YELENA 1.2.840.114 [id number] Univers 00:00:00 00:00:00 Only Unassigned, JUAN MANUEL 350.1.13.10 ity of [place] [facility] 4.2.7.2.686 [place] [id number] [place] [address] [address] 2022-12-07 2022-12-07 Outpatient R [facility] [id number] Univers 09:00:00 09:00:00 ity of [facility] 2022-12-02 2022-12-04 Inpatient P [facility] RAMESH [id number] Univers 05:22:00 16:35:00 ity of [facility] 2022-12-02 2022-12-04 Hospital Yrn Simmons [facility] 1.2.840.114 [id number] Univers 05:22:00 16:35:00 Encounter Lucho LEWIS 350.1.13.10 ity of [facility] 4.2.7.2.686 [place] [id number] [facility] [address] 2022-12-04 2022-12-04 Outpatient R [facility] [id number] Univers 09:00:00 09:00:00 ity of [facility] 2022-12-03 2022-12-03 Surgery Yrn Simmons [facility] 1.2.217.796 [id number] Univers 07:35:00 09:19:00 Cam ANGLEBIANKA 350.1.13.10 i ty of [place] 4.2.7.2.686 [place] [facility] [id number] [address] 2022-12-03 2022-12-03 Anesthesia [facility] 1.2.840.114 [id number] Univers 07:34:00 08:50:00 Event Yashira LEWIS 350.1.13.10 i ty of [place] 4.2.7.2.686 [place] [facility] [id number] [facility] [address] 2022-12-02 2022-12-02 Orders Doctor KIRK 1.2.840.114 [id number] Univers 00:00:00 00:00:00 Only Unassigned, JUAN MANUEL 350.1.13.10 ity of [facility] 4.2.7.2.686 [place] as [id number] [address] 2022-12-01 2022-12-01 Surveillance Technician Arron, Sanam Lab Main [facility] 1.2.8 40.114 [id number] Univers 09:45:00 10:00:00 Visit EileenelisDalia 350.1.13. 10 ity of [place] 4.2.7.2.686 [place] PROFESS [id number] In dical [address] 2022-12-01 2022-12-01 Outpatient R DALIA BARBOSA [facility] B [id number] Univers 09:45:00 09:45:00 CHELSEY DALIA ity of [facility] 2022-12-01 2022-12-01 Outpatient R [facility] [id number] Univers 09:00:00 09:00:00 ity of [facility] 2022-12-01 2022-12-01 Orders Doctor KIRK 1.2.840.114 [id number] Univers 00:00:00 00:00:00 Only Unassigned, JUAN MANUEL 350.1.13.10 ity of [place] [facility] 4.2.7.2.686 [place] as [id number] [address] 2022-12-01 2022-12-01 Telephone Yrn Simmons [facility] 1.2.840.114 [id number] Univers 00:00:00 00:00:00 Cam [place] 350.1.13.10 i ty of [place] 4.2.7.2.686 [place] PROFESS[place] [id number] In dic[address] 2022-12-01 2022-12-01 Telephone Yrn Simmons [facility] 1.2.840.114 99 [id number] Univers 00:00:00 00:00:00 Cam [place] 350.1.13.10 i ty of [facility] 4.2.7.2.686 [place] PROF[place] [id number] In dic[address] 2022-11-30 2022-11-30 Outpatient R DALIA BARBOSA [facility] B [id number] Univers 09:00:00 09:53:41 TRIDALIA PAULINO ity of [facility] 2022-11-30 2022-11-30 Routine [facility] 1.2.840. 114 [id number] Univers 09:00:00 09:53:41 TriDalia paulino 350.1.13. 10 ity of Visit W[place] 4.2.7.2.[place] [facility] [id number] [address] 2022-11-30 2022-11-30 Orders Doctor YELENA 1.2.840.114 [id number] Univers 00:00:00 00:00:00 Only Unassigned, JUAN MANUEL 350.1.13.10 ity of [place] [facility] 4.2.7.2.686 [place] as [id number] [address] 2022-11-27 2022-11-27 Outpatient R [facility] [id number] Univers 09:00:00 09:00:00 ity of [facility] 2022-11-26 2022-11-26 Routine Room, Adc 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 114 [id number] Univers 09:00:00 09:15:00 Dalia Barbosa 350.1.13. 10 ity of Visit WOMEN'S 4.2.7.2.686 [facility] HEALTH [id number] [address] 2022-11-24 2022-11-24 Outpatient R DALIA BARBOSA [facility] B [id number] Univers 09:00:00 09:00:00 DALIA BARBOSA ity of [facility] 2022-11-20 2022-11-20 Outpatient R [facility] [id number] Univers 09:00:00 09:00:00 ity of [facility] 2022-11-17 2022-11-17 Outpatient R [facility] [id number] Univers 09:00:00 09:00:00 ity of [facility] 2022-11-16 2022-11-16 Routine 1, [facility] 1.2.840. 114 [id number] Univers 09:00:00 09:47:29 Dalia Barbosa 350.1.13. 10 ity of Visit [place] 4.2.[place].2.[place] [id number] [address] 2022-11-16 2022-11-16 Outpatient R DALIA BARBOSA [facility] B [id number] Univers 09:00:00 09:47:29 DALIA BARBOSA ity [facility] 2022-11-13 2022-11-13 [facility] 1.2. 840.114 [id number] Univers 09:00:00 09:15:00 Yrn Simmons 350.1.13.10 ity of Visit [place] 4.2.[place].2.[place] [id number] [address] 2022-11-13 2022-11-13 Outpatient R SIMMONSABIEN [facility] [id number] Univers 09:00:00 09:00:00 ity of [facility] 2022-11-10 2022-11-10 Outpatient R [facility] [id number] Univers 09:00:00 09:00:00 ity of [facility] 2022-11-09 2022-11-09 Outpatient R DALIA BARBOSA [facility] B [id number] Univers 09:00:00 09:39:02 TRIDALIA PAULINO ity [facility] 2022-11-09 2022-11-09 Routine 1, Tiara Campuzano [facility] 1.2.840. 114 [id number] Univers 09:00:00 09:39:02 TriDalia paulino 350.1.13. 10 ity of Visit [place] 4.2.7.2.686 [place] [id number] [address] 2022-11-09 2022-11-09 Orders Doctor KIRK 1.2.840.114 [id number] Univers 00:00:00 00:00:00 Only Unassigned, JUAN MANUEL 350.1.13.10 ity of [place] [facility] 4.2.7.2.686 [place] as [id number] [address] 2022-11-06 2022-11-06 Routine 1, Tiara Mojicat Room [facility] 1.2.840. 114 [id number] Univers 09:00:00 10:12:36 Abi Simmonsmigel CROCKETT 350.1.13.10 ity of Visit [place] 4.2.7.2.686 [place] [id number] [address] 2022-11-06 2022-11-06 Outpatient Perlita SIMMONS YRN [facility] [id number] Univers 09:00:00 10:12:36 ity of [facility] 2022-11-03 2022-11-03 Routine 1, [facility] 1.2.840. 114 [id number] Univers 10:00:00 10:24:13 Chary Urban BON 350.1.13.10 ity of [place] 4.2.7.2.[place] [id number] [address] 2022-11-03 2022-11-03 Outpatient Davis URBAN [facility] [id number] Univers 08:00:00 09:12:05 CHARY itese [facility] 2022-11-03 2022-11-03 Surveillance Technician Ultrasound, [facility] 1.2 .840.114 [id number] Univers 08:00:00 08:30:00 Visit Chary Urban DEBBIE 350.1.13.10 ity of [place] 4.2.7.2.686 [place] [id number] In dical [address] 2022-11-03 2022-11-03 Case Tessabalaji [facility] 1.2.840.114 [id number] Univers 00:00:00 00:00:00 Management Dalia CROCKETT 350.1.13.10 ity of [place] 4.2.[place].2.[place] [id number] [address] 2022-10-30 2022-10-30 Outpatient R TROY YRN [facility] [id number] Univers 09:45:00 10:32:36 ity [facility] 2022-10-30 2022-10-30 Routine Dalia Barbosa [facility] 1.2. 840.114 [id number] Univers 09:45:00 10:32:36 Yrn Simmons 350.1.13.10 ity of [place] 4.2.7.2.686 [place] [id number] [address] 2022-10-30 2022-10-30 Orders Doctor KIRK 1.2.840.114 [id number] Univers 00:00:00 00:00:00 Only Unassigned, JUAN MANUEL 350.1.13.10 ity of [place] [facility] 4.2.7.2.686 [place] as [id number] [address] 2022-10-26 2022-10-26 Surveillance Technician Sanam Heller [facility] Main [facility] 1.2.8 40.114 [id number] Univers 10:45:00 11:00:00 Visit Yrn Simmons 350.1.13.10 ity of [place] 4.2.7.2.686 [place] [id number] In dical NAL [address] [place] [address] 2022-10-26 2022-10-26 Outpatient R YRN SIMMONS [facility] [id number] Univers 10:45:00 10:45:00 ity of [facility] 2022-10-26 2022-10-26 Outpatient P [facility] [id number] Univers 09:15:00 09:15:00 ity of [facility] 2022-10-16 2022-10-16 Outpatient R CHELSEY DALIA [facility] B [id number] Univers 09:30:00 10:27:16 TESSABALAJI KELSIEEVETTE ity [facility] 2022-10-16 2022-10-16 Routine [facility] 1.2.840.114 [id number] Univers 09:30:00 10:27:16 Dalia CROCKETT 350.1.13.10 i ty of Visit [place] 4.2.7.2.686 [place] [id number] [address] 2022-10-16 2022-10-16 Orders Doctor KIRK 1.2.840.114 [id number] Univers 00:00:00 00:00:00 Only Unassigned, JUAN MANUEL 350.1.13.10 ity of [place] [facility] 4.2.7.2.686 [place] [id number] [address] 2022-10-02 2022-10-02 Outpatient R YRN SIMMONS [facility] [id number] Univers 10:30:00 10:58:36 ity of [facility] 2022-10-02 2022-10-02 Routine Yrn Simmons [facility] 1.2.840.114 [id number] Univers 10:30:00 10:58:36 Lucho CROCKETT 350.1.13.10 i ty of Visit [facility] 4.2.7.2.686 [facility] [id number] [address] 2022-09-28 2022-09-28 Surveillance Technician Ultrasound, [facility] 1.2 .840.114 [id number] Univers 08:00:00 08:30:00 Visit Inocencio 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 350.1.13.10 ity of [facility] 4.2.7.2.686 [place] MATERNAL [id number] [facility] ical & CHILD [address] [place] [address] 2022-09-28 2022-09-28 Outpatient P MARICARMEN [facility] [id number] Univers 08:00:00 08:00:00 INOCENCIO ity of [facility] 2022-09-07 2022-09-07 Patient Gary [facility] 1.2.922.023 [id number] Univers 00:00:00 00:00:00 Secure Msg Krystyna CROCKETT 350.1.13.10 ity of PEDIATRIC 4.2.7.2.686 Te [facility] [id number] [address] 2022-09-04 2022-09-04 Outpatient R DALIA BARBOSA [facility] B [id number] Univers 09:30:00 10:27:29 DALIA BARBOSA itese [facility] 2022-09-04 2022-09-04 Routine Dalia Barbosa [facility] 1.2. 840.114 [id number] Univers 09:30:00 10:27:29 Yrn Simmons 350.1.13.10 ity of [place] 4.2.7.2.[place] [id number] [address] 2022-09-04 2022-09-04 Outpatient R YRN SIMMONS [facility] [id number] Univers 09:30:00 09:30:00 ity of [facility] 2022-09-01 2022-09-01 Patient Case, Riana [facility] 1.2.840.114 [id number] Univers 00:00:00 00:00:00 Secure Msg [place] 350.1.13.10 it[place]2.[place] [id number] [address] 2022-08-31 2022-08-31 Surveillance Technician Ultrasound, Vi [facility] 1.2 .840.114 [id number] Univers 08:45:00 09:30:00 Visit 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1.13.10 it y [place] [id number] [address] 2022-08-20 2022-08-20 Orders Doctor KIRK 1.2.840.114 [id number] Univers 00:00:00 00:00:00 Only Unassigned, JUAN MANUEL 350.1.13.10 ity of [place] [facility] 4.2.7.2.686 [place] [id number] [facility] [address] 2022-08-12 2022-08-12 Emergency X Estela MARTINEZ [facility] ERT [id number] Univers 12:00:00 17:56:00 ity of [facility] 2022-08-12 2022-08-12 Emergency Yrn Shaw [facility] 1.2.840.1 14 [id number] Univers 12:00:00 17:56:00 Estela Martinez 350.1.13.10 ity [place].7.2.[place] [id number] [facility] [address] 2022-08-12 2022-08-12 Patient Manjula [facility] 1.2.840.114 [id number] Univers 00:00:00 00:00:00 Secure Msg Pratima LEWIS 350.1.13.10 ity of [place] 4.2.7.2.[place] [id number] In dical NAL [address] [place] [address] 2022-08-04 2022-08-04 Outpatient R YRN SIMMONS [facility] [id number] Univers 09:30:00 10:29:39 ity of [facility] 2022-08-04 2022-08-04 Yrn Yan [facility] 1.2.135.069 [id number] Univers 09:30:00 10:29:39 Lucho LEWIS 350.1.13.10 ity of [place] 4.2.7.2.[place] [id number] 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 350.1.13.10 ity [facility] 4.2.7.2.686 [place] MATERNAL [id number] [facility] ical & CHILD [address] [place] [address] 2022-07-31 2022-07-31 Outpatient P [facility] [id number] Univers 08:30:00 09:25:53 RAHUL BEGUM [facility] 2022-07-31 2022-07-31 Outpatient P [facility] [id number] Univers 08:30:00 08:30:00 ity [facility] 2022-07-31 2022-07-31 Outpatient P [facility] [id number] Univers 08:30:00 08:30:00 RAHUL BEGUM [facility] 2022-07-31 2022-07-31 Telephone Roney Waggoner [facility] ASENCIO 1.2.840.11 4 [id number] Univers 00:00:00 00:00:00 BON 350.1.13.10 it y [place] [id number] [address] 2022-07-28 2022-07-28 Outpatient R RONEY WAGGONER [facility] [id number] Univers 08:15:00 09:05:42 ity [facility] 2022-07-28 2022-07-28 Routine Roney Waggoner [facility] ASENCIO 1.2.840.114 [id number] Univers 08:15:00 09:05:42 BON 350.1.13.10 i ty of Visit [place] [id number] [address] 2022-07-28 2022-07-28 Orders Doctor KIRK 1.2.840.114 [id number] Univers 00:00:00 00:00:00 Only Unassigned, JUAN MANUEL 350.1.13.10 ity of [place] [facility] 4.2.7.2.686 [place] [id number] [address] 2022-07-10 2022-07-10 Outpatient R DALIA BARBOSA [facility] B [id number] Univers 10:15:00 10:46:45 EILEENDALIA PAULINO [facility] 2022-07-10 2022-07-10 Routine [facility] 1.2.840.114 [id number] Univers 10:15:00 10:46:45 Dalia CROCKETT 350.1.13.10 i ty of [place] [id number] [address] 2022-07-10 2022-07-10 Orders Doctor YELENA 1.2.840.114 [id number] Univers 00:00:00 00:00:00 Only Unassigned, JUAN MANUEL 350.1.13.10 ity of [place] [facility] 4.2.7.2.686 [place] [id number] [address] 2022-07-03 2022-07-03 Outpatient R HARPALDALIA GREENFIELD [facility] B [id number] Univers 13:30:00 14:30:25 EILEENDALIA PAULINO [facility] 2022-07-03 2022-07-03 Nurse Nurse, Lkj [facility] 1.2.840.114 [id number] Univers 13:30:00 14:30:25 Visit Eileenalma rosamanjeetDalia caprio 350.1.13.1 0 ity of [place] [id number] [address] 2022-07-01 2022-07-01 Outpatient R EILEENDALIA PAULINO [facility] B [id number] Univers 10:30:00 11:37:01 TESSADALIA CARPIO [facility] 2022-07-01 2022-07-01 [facility] 1.2.840.114 [id number] Univers 10:30:00 11:37:01 Dalia CROCKETT 350.1.13.10 i ty of Visit [place] [id number] [address] 2022-07-01 2022-07-01 Telephone [facility] 1.2.840.11 4 [id number] Univers 00:00:00 00:00:00 Dalia CROCKETT 350.1.13.10 it y [place] [id number] [address] 2022-07-01 2022-07-01 Patient [facility] 1.2.840.114 [id number] Univers 00:00:00 00:00:00 Secure Msg Dalia CROCKETT 350.1.13.10 ity [place] [id number] [address] 2022-06-30 2022-06-30 Surveillance Technician 2, Adc Lab [facility] 1.2.840.114 [id number] Univers 09:15:00 09:30:00 Visit Roney Waggoner 350.1.13.10 ity of [facility] 4.2.7.2.[place] [id number] In dical [facility] [address] [facility] 2022-06-30 2022-06-30 Outpatient R RONEY WAGGONER [facility] [id number] Univers 09:15:00 09:15:00 ity of [facility] 2022-06-30 2022-06-30 Orders Doctor YELENA 1.2.840.114 [id number] Univers 00:00:00 00:00:00 Only Unassigned, JUAN MANUEL 350.1.13.10 ity of [place] [facility] 4.2.7.2.686 [place] [id number] [address] 2022-06-08 2022-06-08 Patient Manjula [facility] 1.2.840.114 [id number] Univers 00:00:00 00:00:00 Secure Msg Pratima LEWIS 350.1.13.10 ity of [facility] 4.2.7.2.[place] [id number] In dical [facility] [address] [facility] 2022-06-08 2022-06-08 Case Roney Waggoner [facility] 1.2.840.114 [id number] Univers 00:00:00 00:00:00 Management BON 350.1.13.10 it[place] [id number] [facility] [address] 2022-06-05 2022-06-05 Surveillance Technician Arron, Sanam Lab Main [facility] 1.2.8 40.114 [id number] Univers 11:30:00 11:45:00 Visit Roney Waggoner 350.1.13.10 ity of [facility] 4.2.7.2.[place] [id number] [facility] [address] [facility] 2022-06-05 2022-06-05 Outpatient R RONEY WAGGONER [facility] [id number] Univers 11:30:00 11:30:00 ity of [facility] 2022-06-05 2022-06-05 Orders Doctor YELENA 1.2.840.114 [id number] Univers 00:00:00 00:00:00 Only Unassigned, JUAN MANUEL 350.1.13.10 ity of [place] [facility] 4.2.7.2.686 [place] [id number] [address] 2022-06-05 2022-06-05 Case [facility] 1.2.840.114 [id number] Univers 00:00:00 00:00:00 Management Dalia CROCKETT 350.1.13.10 it[place] [id number] [facility] [address] 2022-06-04 2022-06-04 Patient Manjula [facility] 1.2.840.114 [id number] Univers 00:00:00 00:00:00 Secure Msg Pratima DEBBIE 350.1.13.10 ity [facility] [place] [id number] [facility] [address] [facility] 2022-06-03 2022-06-03 Outpatient R DALIA BARBOSA [facility] B [id number] Univers 10:30:00 11:44:37 DALIA BARBOSA ity [facility] 2022-06-03 2022-06-03 Routine Chelsey [facility] 1.2.840.114 [id number] Univers 10:30:00 11:44:37 Dalia CROCKETT 350.1.13.10 i ty of Visit [place] [id number] [address] 2022-05-21 2022-05-21 Outpatient R [facility] [id number] Univers 10:00:00 10:00:00 ity [facility] 2022-05-07 2022-05-07 Outpatient R [facility] [id number] Univers 08:30:00 10:08:13 ity [facility] 2022-05-07 2022-05-07 Initial Roney Waggoner [facility] 1.2.840.114 [id number] Univers 08:30:00 10:08:13 BON 350.1.13.10 i ty of [place] [id number] [address] 2022-05-05 2022-05-05 Telephone Roney Waggoner [facility] 1.2.840.11 [id number] Univers 00:00:00 00:00:00 BON 350.1.13.10 it y [place] [id number] [address] 2022-03-26 2022-03-26 Outpatient R [facility] [id number] Univers 09:00:00 10:23:33 PREETI freedman o f [facility] 2022-03-26 2022-03-26 [facility] 1.2.840.114 [id number] Univers 09:00:00 10:23:33 Visit Preeti R 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 350.1.13.10 ity of [facility] 4.2.7.2.686 [place] MATERNAL [id number] Med ical & CHILD [address] [place] [address] 2022-03-26 2022-03-26 Outpatient R [facility] [id number] Univers 09:00:00 09:00:00 PREETI ity o f [facility] 2022-03-26 2022-03-26 Orders Doctor YELENA 1.2.840.114 [id number] Univers 00:00:00 00:00:00 Only Unassigned, JUAN MANUEL 350.1.13.10 ity of [facility] 4.2.7.2.686 [place] [id number] [facility] [address] 2021-02-18 2021-02-18 Patient Hectro [facility] 1.2.840.114 [id number] Univers 00:00:00 00:00:00 Outreach [facility] 350.1.13.10 i ty of [facility] [place] [id number] In dicia [address] 2020-08-08 2020-08-08 Orders Doctor YELENA 1.2.840.114 [id number] Univers 00:00:00 00:00:00 Only Unassigned, JUAN MANUEL 350.1.13.10 ity of [facility] [id number] [place] [phone] [facility] [address] 2020-08-02 2020-08-02 [facility] 1.2.8 [id number] Univers 13:11:49 14:50:44 Visit Chayo Dwyer [facility] [id number] ity of CL[place]ICS [id number] [phone] [facility] [address] 2020-08-02 2020-08-02 Outpatient R [facility] [id number] Univers 13:15:00 13:15:00 ity of [facility] 2020-07-26 2020-07-26 Outpatient R ANTWON [facility] [id number] Univers 14:00:00 14:00:00 KHOI ity [facility] 2020-07-16 2020-07-16 Office Neptali [facility] [id number] Univers 14:31:59 15:36:41 Visit Mathew Donald 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 [id number] it y of REGIONAL [id number] [place] MATERNAL [phone] [facility] & [address] 2020-07-16 2020-07-16 Outpatient Perlita SHIRLEY [facility] [id number] Univers 14:30:00 14:30:00 MATHEW freedman [facility] 2019-01-17 2019-01-17 Outpatient MHIE MHIE [id number] [place] 14:00:00 14:00:00 16 sim [place] 2019-01-17 2019-01-17 Outpatient MHIE MHIE [id number] [place] 14:00:00 14:00:00 16 sim [place] 2019-01-10 2019-01-10 Outpatient MHIE MHIE [id number] [place] 11:15:00 11:15:00 15 sim [place] 2019-01-10 2019-01-10 Outpatient MHIE MHIE [id number] [place] 11:15:00 11:15:00 15 sim [place] 2018-11-30 2018-11-30 Outpatient MHIE MHIE [id number] [place] 08:30:00 08:30:00 14 sim Pablo 2018-11-30 2018-11-30 Outpatient MHIE MHIE [id number] [place] 08:30:00 08:30:00 14 sim [place] 2018-11-01 2018-11-01 Outpatient MHIE MHIE [id number] [place] 16:30:00 16:30:00 13 sim [place] 2018-11-01 2018-11-01 Outpatient MHIE MHIE [id number] [place] 16:30:00 16:30:00 13 sim [place] 2018-10-25 2018-10-25 Outpatient MHIE MHIE [id number] [place] 08:45:00 08:45:00 12 l [place] 2018-10-25 2018-10-25 Outpatient MHIE MHIE [id number] [place] 08:45:00 08:45:00 12 sim [place] 2018-10-11 2018-10-11 Outpatient MHIE MHIE [id number] [place] 08:45:00 08:45:00 11 sim [place] 2018-10-11 2018-10-11 Outpatient MHIE MHIE [id number] [facility] 08:45:00 08:45:00 11 l [place] 2018-09-13 2018-09-13 Outpatient MHIE MHIE [id number] [facility] 09:00:00 09:00:00 09 sim [place] 2018-09-13 2018-09-13 Outpatient MHIE MHIE [id number] [place] 09:00:00 09:00:00 09 sim [place] 2018-09-13 2018-09-13 Outpatient MHIE MHIE [id number] [facility] 08:30:00 08:30:00 10 sim [place] 2018-09-13 2018-09-13 Outpatient MHIE MHIE [id number] [facility] 08:30:00 08:30:00 10 sim [place] 2018-08-16 2018-08-16 Outpatient MHIE MHIE [id number] [facility] 08:40:00 08:40:00 08 sim [place] 2018-08-16 2018-08-16 Outpatient MHIE MHIE [id number] [facility] 08:40:00 08:40:00 08 sim [place] 2018-07-26 2018-07-26 Outpatient MHIE MHIE [id number] [facility] 08:00:00 08:00:00 07 sim [place] 2018-07-26 2018-07-26 Outpatient MHIE MHIE [id number] [facility] 08:00:00 08:00:00 07 sim [place] 2018-06-29 2018-06-29 Outpatient MHIE MHIE [id number] [facility] 09:30:00 09:30:00 05 sim [place] 2018-06-29 2018-06-29 Outpatient MHIE MHIE [id number] [facility] 09:30:00 09:30:00 05 sim [place] 2018-06-06 2018-06-06 Outpatient MHIE MHIE [id number] [place] 13:00:00 13:00:00 02 sim [place] 2018-06-06 2018-06-06 Outpatient MHIE MHIE [id number] [facility] 13:00:00 13:00:00 02 sim [place] 2018-05-31 2018-05-31 Outpatient MHIE MHIE [id number] [facility] 14:00:00 14:00:00 06 sim [place] 2018-05-31 2018-05-31 Outpatient MHIE MHIE [id number] [place] 14:00:00 14:00:00 06 sim [place] 2018-05-31 2018-05-31 Outpatient MHIE MHIE [id number] [facility] 13:30:00 13:30:00 04 sim [place] 2018-05-31 2018-05-31 Outpatient MHIE MHIE [id number] [facility] 13:30:00 13:30:00 04 sim [place] 2018-05-31 2018-05-31 Outpatient MHIE MHIE [id number] [facility] 13:00:00 13:00:00 03 sim [place] 2018-05-31 2018-05-31 Outpatient MHIE MHIE [id number] [facility] 13:00:00 13:00:00 03 sim [place] 2018-05-10 2018-05-10 Outpatient MHIE MHIE [id number] [facility] 14:00:00 14:00:00 00 sim [place] 2018-05-10 2018-05-10 Outpatient MHIE MHIE [id number] [facility] 14:00:00 14:00:00 00 sim [place] 2018-05-10 2018-05-10 Outpatient MHIE MHIE [id number] [place] 13:30:00 13:30:00 01 sim [place] 2018-05-10 2018-05-10 Outpatient MHIE MHIE [id number] [place] 13:30:00 13:30:00 01 sim [place] Results Test Description Test Time Test Comments Results Result Comments Source CBC with Differential 2022-12-04 11:27:35 Test Item Value Reference Range Interpretation Comme nts WBC (test code = 6690-2) See_Comment [A utomated message] The system which ge nerated this result transmit michelle reference range: 4.30 - 1 1.10 10*3/?L. The reference r emy was not used to interpr et this result as normal/abnor mal. RBC (test code = 789-8) See_Comment L [Au tomated message] The system which ge nerated this result transmit michelle reference range: 3.93 - 5 .25 10*6/?L. The reference r emy was not used to interpr et this result as normal/abnor mal. HGB (test code = 718-7) 8.9 g/dL 11.6-15.0 L HCT (test code = 4544-3) 29.5 % 35.7-45.2 L MCV (test code = 787-2) 80.4 fL 80.6-95.5 L MCH (test code = 785-6) 24.3 pg 25.9-32.8 L MCHC (test code = 786-4) 30.2 g/dL 31.6-35.1 L RDW-SD (test code = 79441-2) 60.1 fL 39.0-49.9 H RDW-CV (test code = 788-0) 21.1 % 12.0-15.5 H PLT (test code = 777-3) See_Comment [Au tomated message] The system which Aradigm nerated this result transmit michelle reference range: 166 - 35 8 10*3/?L. The reference range was not used to interpret th is result as normal/abnormal . MPV (test code = 39786-8) 9.3 fL 9.5-12.9 L NRBC/100 WBC (test code = See_Comment [ Automated message] The 7618959047) system which [employer] nerated this result transmit michelle reference range: 0.0 - 10 .0 /100 WBCs. The reference r emy was not used to interpr et this result as normal/abnor mal. NRBC x10^3 (test code = See_Comment [Au tomated message] The 2626849355) system which [employer] nerated this result transmit michelle reference range: 10*3/?L. The reference range was not u sed to interpret this result as normal/abnormal . GRAN MAT (NEUT) % (test code 73.5 % = 770-8) IMM GRAN % (test code = 1.00 % 2827296287) LYMPH % (test code = 736-9) 16.5 % MONO % (test code = 5905-5) 7.4 % EOS % (test code = 713-8) 1.3 % BASO % (test code = 706-2) 0.3 % GRAN MAT x10^3(ANC) (test 7.19 10*3/uL 1.88-7.09 H code = 4163251374) IMM GRAN x10^3 (test code = 0.10 10*3/uL 0.00-0.06 H 2903777362) LYMPH x10^3 (test code = 1.61 10*3/uL 1.32-3.29 731-0) MONO x10^3 (test code = 0.72 10*3/uL 0.33-0.92 742-7) EOS x10^3 (test code = 0.13 10*3/uL 0.03-0.39 711-2) BASO x10^3 (test code = 0.03 10*3/uL 0.01-0.07 704-7) Lab Interpretation (test Abnormal code = 70765-7) [facility] with [id number] 11:27:35 Test Item Value Reference Range Interpretation Comments WBC (test code = See_Comment [Automated 6690-2) message] The sy stem which generated this result transmitted reference range : 4.30 - 11.10 10*3/?L. The reference range was not used to interpret this result as normal/abnormal . RBC (test code = See_Comment L [Automated 789-8) message] The sy stem which generated this result transmitted reference range : 3.93 - 5.25 10*6/?L. The reference range was not used to interpret this result as normal/abnormal . HGB (test code = 8.9 g/dL 11.6-15.0 L 718-7) HCT (test code = 29.5 % 35.7-45.2 L 4544-3) MCV (test code = 80.4 fL 80.6-95.5 L 787-2) MCH (test code = 24.3 pg 25.9-32.8 L 785-6) MCHC (test code = 30.2 g/dL 31.6-35.1 L 786-4) RDW-SD (test code = 60.1 fL 39.0-49.9 H 74282-5) RDW-CV (test code = 21.1 % 12.0-15.5 H 788-0) PLT (test code = See_Comment [Automated 777-3) message] The sy stem which generated this result transmitted reference range : 166 - 358 10*3/ ?L. The reference r emy was not used to interpret this result as normal/abnormal . MPV (test code = 9.3 fL 9.5-12.9 L 57204-1) NRBC/100 WBC (test See_Comment [Automat ed code = 7570333993) message] The system which generated this result transmitted reference range : 0.0 - 10.0 /100 WBCs. The refer ence range was not u sed to interpret th is result as normal/abnormal . NRBC x10^3 (test code See_Comment [Auto mated = 8561037720) message] The s ystem which generated this result transmitted reference range : 10*3/?L. The reference range was not used to interpret this result as normal/abnormal . GRAN MAT (NEUT) % 73.5 % (test code = 770-8) IMM GRAN % (test code 1.00 % = 0571919311) LYMPH % (test code = 16.5 % 736-9) MONO % (test code = 7.4 % 5905-5) EOS % (test code = 1.3 % 713-8) BASO % (test code = 0.3 % 706-2) GRAN MAT x10^3(ANC) 7.19 10*3/uL 1.88-7.09 H (test code = 3121768788) IMM GRAN x10^3 (test 0.10 10*3/uL 0.00-0.06 H code = 8780421081) LYMPH x10^3 (test code 1.61 10*3/uL 1.32-3.29 = 731-0) MONO x10^3 (test code 0.72 10*3/uL 0.33-0.92 = 742-7) EOS x10^3 (test code = 0.13 10*3/uL 0.03-0.39 711-2) BASO x10^3 (test code 0.03 10*3/uL 0.01-0.07 = 704-7) Lab Interpretation Abnormal (test code = 12656-0) [facility] GLUCOSE (AUTOMATED)2022-12-03 12:18:48 Test Item Value Reference Range Interpretation Comments POCT GLU (test code = 4815794006) 117 mg/dL 70-110 H Lab Interpretation (test code = Abnormal 33451-2) [facility] 12:18:48 Test Item Value Reference Range Interpretation Comments POCT GLU (test code = 6701799014) 117 mg/dL 70-110 H Lab Interpretation (test code = Abnormal 17531-2) [facility] WITH [id number] 17:59:10 Test Item Value Reference Range Interpretation Comments HIV Negative Negative Semi-quantitative (test code = 84998-9) ASAF (test code = Non-reactive for HIV-1 ASAF) antigen and HIV-1/HIV-2 antibodies. ?No laboratory evidence of HIV infection. ?Repeat in 2-4 weeks if acute HIV infection is suspected. [facility] WITH [id number] 16:30:00 Test Item Value Reference Range Interpretation Comments WBC (test code = See_Comment H [Automated 6690-2) message] The sy stem which generated this result transmitted reference range : 4.30 - 11.10 10*3/?L. The reference range was not used to interpret this result as normal/abnormal . RBC (test code = See_Comment [Automated 789-8) message] The sy stem which generated this result transmitted reference range : 3.93 - 5.25 10*6/?L. The reference range was not used to interpret this result as normal/abnormal . HGB (test code = 10.8 g/dL 11.6-15.0 L 718-7) HCT (test code = 34.7 % 35.7-45.2 L 4544-3) MCV (test code = 78.7 fL 80.6-95.5 L 787-2) MCH (test code = 24.5 pg 25.9-32.8 L 785-6) MCHC (test code = 31.1 g/dL 31.6-35.1 L 786-4) RDW-SD (test code = 59.2 fL 39.0-49.9 H 66756-7) RDW-CV (test code = 21.2 % 12.0-15.5 H 788-0) PLT (test code = See_Comment [Automated 777-3) message] The sy stem which generated this result transmitted reference range : 166 - 358 10*3/ ?L. The reference r emy was not used to interpret this result as normal/abnormal . MPV (test code = 9.5 fL 9.5-12.9 77028-9) NRBC/100 WBC (test See_Comment [Automat ed code = 2377542580) message] The system which generated this result transmitted reference range : 0.0 - 10.0 /100 WBCs. The refer ence range was not u sed to interpret th is result as normal/abnormal . NRBC x10^3 (test code See_Comment [Auto mated = 9556418609) message] The s ystem which generated this result transmitted reference range : 10*3/?L. The reference range was not used to interpret this result as normal/abnormal . GRAN MAT (NEUT) % 75.8 % (test code = 770-8) IMM GRAN % (test code 1.50 % = 0600465322) LYMPH % (test code = 15.2 % 736-9) MONO % (test code = 5.6 % 5905-5) EOS % (test code = 1.6 % 713-8) BASO % (test code = 0.3 % 706-2) GRAN MAT x10^3(ANC) 8.94 10*3/uL 1.88-7.09 H (test code = 6464502484) IMM GRAN x10^3 (test 0.18 10*3/uL 0.00-0.06 H code = 9785172391) LYMPH x10^3 (test code 1.79 10*3/uL 1.32-3.29 = 731-0) MONO x10^3 (test code 0.66 10*3/uL 0.33-0.92 = 742-7) EOS x10^3 (test code = 0.19 10*3/uL 0.03-0.39 711-2) BASO x10^3 (test code 0.03 10*3/uL 0.01-0.07 = 704-7) Lab Interpretation Abnormal (test code = 61841-9) [facility] URINALYSIS W/O SPECIFIC [id number] 15:12:00 Test Item Value Reference Range Interpretation Comments POCT PH U (test code = 3254) n/a 5-8 POCT U LEUK EST (test code = n/a Negative - Negative 3263) POCT U NIT (test code = 3262) n/a Negative - Negative POCT U PROT (test code = 3259) negative Negative - Negative POCT U GLU (test code = 3256) negative Negative - Negative POCT U KETONE (test code = 3258) n/a Negative - Negative POCT U BLD (test code = 3257) n/a Negative - Negative [facility] URINALYSIS W/O SPECIFIC [id number] 15:20:00 Test Item Value Reference Range Interpretation Comments POCT PH U (test code = 3254) n/a 5-8 POCT U LEUK EST (test code = n/a Negative - Negative 3263) POCT U NIT (test code = 3262) n/a Negative - Negative POCT U PROT (test code = 3259) negative Negative - Negative POCT U GLU (test code = 3256) negative Negative - Negative POCT U KETONE (test code = 3258) n/a Negative - Negative POCT U BLD (test code = 3257) n/a Negative - Negative [facility] [id number] 16:00:00 Test Item Value Reference Range Interpretation Comments POCT PH U (test code = 3254) N/A 5-8 POCT U LEUK EST (test code = N/A Negative - Negative 3263) POCT U NIT (test code = 3262) N/A Negative - Negative POCT U PROT (test code = 3259) Negative Negative - Negative POCT U GLU (test code = 3256) Neagtive Negative - Negative POCT U KETONE (test code = 3258) N/A Negative - Negative POCT U BLD (test code = 3257) N/A Negative - Negative [facility] [id number] 15:54:00 Test Item Value Reference Range Interpretation Comments POCT PH U (test code = 3254) N/A 5-8 POCT U LEUK EST (test code = N/A Negative - Negative 3263) POCT U NIT (test code = 3262) N/A Negative - Negative POCT U PROT (test code = 3259) Negative Negative - Negative POCT U GLU (test code = 3256) 1+ Negative - Negative POCT U KETONE (test code = 3258) N/A Negative - Negative POCT U BLD (test code = 3257) N/A Negative - Negative [facility] [id number] 16:14:00 Test Item Value Reference Range Interpretation Comments POCT PH U (test code = 3254) n/a 5-8 POCT U LEUK EST (test code = n/a Negative - Negative 3263) POCT U NIT (test code = 3262) n/a Negative - Negative POCT U PROT (test code = 3259) negative Negative - Negative POCT U GLU (test code = 3256) negative Negative - Negative POCT U KETONE (test code = 3258) n/a Negative - Negative POCT U BLD (test code = 3257) n/a Negative - Negative [facility] [id number] 15:42:00 Test Item Value Reference Range Interpretation Comments POCT PH U (test code = 3254) n/a 5-8 POCT U LEUK EST (test code = n/a Negative - Negative 3263) POCT U NIT (test code = 3262) n/a Negative - Negative POCT U PROT (test code = 3259) negative Negative - Negative POCT U GLU (test code = 3256) negative Negative - Negative POCT U KETONE (test code = 3258) n/a Negative - Negative POCT U BLD (test code = 3257) n/a Negative - Negative [facility] SPE[facility]IFIC [id number] 14:58:00 Test Item Value Reference Range Interpretation Comments POCT PH U (test code = 3254) n/a 5-8 POCT U LEUK EST (test code = n/a Negative - Negative 3263) POCT U NIT (test code = 3262) n/a Negative - Negative POCT U PROT (test code = 3259) negative Negative - Negative POCT U GLU (test code = 3256) negative Negative - Negative POCT U KETONE (test code = 3258) n/a Negative - Negative POCT U BLD (test code = 3257) n/a Negative - Negative [facility] [id number] 19:02:00 Test Item Value Reference Range Interpretation Comments POCT PREG (test code = 1605) POSITIVE On board controls acceptable with present C Line (test code = 3574) POCT PREG LOT # (test code = 3575) [id number] POCT PREG TEST DATE (test 10/28/2023 code = 3576) Lab Interpretation (test code = Normal 34929-5) [facility]CIFIC [id number] 14:56:00 Test Item Value Reference Range Interpretation Comments POCT PH U (test code = 3254) n/a 5-8 POCT U LEUK EST (test code = n/a Negative - Negative 3263) POCT U NIT (test code = 3262) n/a Negative - Negative POCT U PROT (test code = 3259) negative Negative - Negative POCT U GLU (test code = 3256) negative Negative - Negative POCT U KETONE (test code = 3258) n/a Negative - Negative POCT U BLD (test code = 3257) n/a Negative - Negative [facility]
[2023-05-20 07:55] LABS: Specific Gravity 1.019 (1.005-1.030)
[2023-05-20 07:56] LABS: Specific Gravity 1.019 (1.005-1.030); Urine Bacteria None Seen /HPF (<20); Urine Bilirubin NEGATIVE (Negative); Urine Blood Negative (Negative); Urine Clarity Turbid (Clear); Urine Color Light-Yellow (Yellow); Urine Glucose NEGATIVE (Negative); Urine Mucus Slight /HPF (None Seen); Urine Protein NEGATIVE (Negative); Urine RBC <5 /HPF (None Seen); Urine Urobilinogen Normal (Normal); Urine pH 5.5 (5.0-7.0)
[2023-05-20] MEDS ORDERED: NA CHLORIDE 0.9% 1,000 ML ONE (08:46)
[2023-05-20] MEDS ORDERED: MORPHINE 4 MG/ML SYR ONE (08:46)
[2023-05-20] MEDS ORDERED: ONDANSETRON 4 MG/2 ML VIAL ONE (08:46)
[2023-05-20] MEDS ORDERED: FAMOTIDINE 20 MG/2 ML VIAL IV ONE (08:46)
--- NOTE | 2023-05-20 08:46 | RAD REPORT ---
EXAM DESCRIPTION: US - Abdomen Exam Limited - 05/20/2023 8:21 am CLINICAL HISTORY: Abdominal pain. COMPARISON: None. FINDINGS: Multiple small gallstones. Gallbladder is moderately distended. Gallbladder wall not thick ened The biliary tree is normal caliber. IMPRESSION: Cholelithiasis. Gallbladder moderately distended
--- NOTE | 2023-05-20 08:47 | RAD REPORT ---
EXAM DESCRIPTION: CT - Abdomen Pelvis W Contrast - 05/20/2023 8:28 am CLINICAL HISTORY: Abdominal pain COMPARISON: none. TECHNIQUE: Computed axial tomography of the abdomen pelvis was obtained. 100 cc Isovue-300 was admin istered intravenously. Oral contrast was not requested which limits evaluation of bowel and appendix All CT scans are performed using dose optimization technique as appropriate and may include automated exposure control or mA/KV adjustment according to patient size. FINDINGS: Moderate gallbladder distention. Cholelithiasis. Gallbladder wall is not thickened. A The liver, spleen, pancreas, adrenal and kidneys appear unremarkable. There is no evidence of diverticulitis. Normal appendix. No adnexal mass. Small to moderate umbilical hernia IMPRESSION: Cholelithiasis with gallbladder distention
[2023-05-20 08:54] LABS: Hematocrit 36.1 % (36.0-45.0); Lymphocytes % 18.5 % (15.3-44.8); MCV 75.5 fL (80-100); MPV 6.7 fL (7.6-11.3); RBC Red Blood Cell Count 4.78 M/uL (3.86-4.86)
[2023-05-20 09:05] LABS: Albumin 2.9 g/dL (3.4-5.0); Bilirubin Total 0.2 mg/dL (0.2-1.0); Potassium 3.6 mEq/L (3.5-5.1); Protein, Total 7.6 g/dL (6.4-8.2)
--- NOTE | 2023-05-20 09:31 | EDPHYS ---
Physician Documentation [facility] Name: Lala Delgado Age: 27 yrs Sex: Female : 1995 Arrival Date: 05/20/2023 Time: 07:27 Bed 17 Private MD: ED Physician Sundar Nieto HPI: 05/20 09:55 This 27 yrs old Female presents to ER via Ambulatory with complaints of kdr Abdominal Pain. 09:55 Patient presents today with right upper quadrant pain that radiates into her right kdr flank. It began about 430 this morning. She has had 1 prior episode about 2 weeks ago. At that time the pain was significant and in the same area but resolved with heating pad over a couple hours. Today the same remedies were not resolving her discomfort so she presented to the ED. She has some nausea but no vomiting no change in her bowel habits no difficulty urinating, she is from November. She had 1 period in February but none since then. She is normally irregular and so is not inordinately concerned about a . Patient does not appear toxic on initial presentation and is otherwise comfortable.. Onset: The symptoms/episode began/occurred suddenly, this morning. Severity of symptoms: At their worst the symptoms were moderate in the emergency department the symptoms are unchanged. The patient has experienced a previous episode, approximately 2 weeks ago. The patient has not recently seen a physician. Historical: - Allergies: 07:34 No Known Allergies; cm10 - Home Meds: 07:34 None [Active]; cm10 - PMHx: 07:34 None; cm10 - PSHx: 07:34 section; cm10 - Immunization history:: Adult Immunizations unknown. - Social history:: Smoking status: Patient reports the use of cigarette tobacco products, denies chronic smoking, but will smoke occasionally. ROS: 09:55 Constitutional: Negative for fever, chills, and weight loss, Eyes: Negative for injury, kdr pain, redness, and discharge, Neck: Negative for injury, pain, and swelling, Cardiovascular: Negative for chest pain, palpitations, and edema, Respiratory: Negative for shortness of breath, cough, wheezing, and pleuritic chest pain, Back: Negative for injury and pain, : Negative for injury, bleeding, discharge, and swelling, MS/Extremity: Negative for injury and deformity, Skin: Negative for injury, rash, and discoloration, Neuro: Negative for headache, weakness, numbness, tingling, and seizure activity. Psych: Negative for depression, anxiety, suicide ideation, homicidal ideation, and hallucinations, Allergy/Immunology: Negative for hives, rash, and allergies, Endocrine: Negative for neck swelling, polydipsia, polyuria, polyphagia, and marked weight changes, Hematologic/Lymphatic: Negative for swollen nodes, abnormal bleeding, and unusual bruising. 09:55 Abdomen/GI: Positive for abdominal pain, nausea, Negative for vomiting, constipation, abdominal cramps, abdominal distension, anorexia, dysphagia, hematemesis, black/tarry stool, rectal pain, rectal bleeding, bowel incontinence. Exam: 09:55 Constitutional: This is a well developed, well nourished patient who is awake, alert, kdr and in no acute distress. Head/Face: Normocephalic, atraumatic. Eyes: Pupils equal round and reactive to light, extra-ocular motions intact. Lids and lashes normal. Conjunctiva and sclera are non-icteric and not injected. Cornea within normal limits. Periorbital areas with no swelling, redness, or edema. Neck: Trachea midline, no thyromegaly or masses palpated, and no cervical lymphadenopathy. Supple, full range of motion without nuchal rigidity, or vertebral point tenderness. No Meningismus. Chest/axilla: Normal chest wall appearance and motion. Nontender with no deformity. No lesions are appreciated. Cardiovascular: Regular rate and rhythm with a normal S1 and S2. No gallops, murmurs, or rubs. Normal PMI, no JVD. No pulse deficits. Respiratory: Lungs have equal breath sounds bilaterally, clear to auscultation and percussion. No rales, rhonchi or wheezes noted. No increased work of breathing, no retractions or nasal flaring. Back: No spinal tenderness. No costovertebral tenderness. Full range of motion. Skin: Warm, dry with normal turgor. Normal color with no rashes, no lesions, and no evidence of cellulitis. MS/ Extremity: Pulses equal, no cyanosis. Neurovascular intact. Full, normal range of motion. Neuro: Awake and alert, GCS 15, oriented to person, place, time, and situation. Cranial nerves II-XII grossly intact. Motor strength 5/5 in all extremities. Sensory grossly intact. Cerebellar exam normal. Normal gait. Psych: Awake, alert, with orientation to person, place and time. Behavior, mood, and affect are within normal limits. 09:55 Abdomen/GI: Inspection: obese Bowel sounds: active, all quadrants, Palpation: soft, mild abdominal tenderness, in the anterior aspect of right lateral abdomen and right upper quadrant. Vital Signs: 07:32 BP 143 / 100; Pulse 78; Resp 16; Temp 98.1(O); Pulse Ox 99% on R/A; Weight 122.47 kg; cm10 Height 5 ft. 4 in. ; Pain 9/10; 09:24 BP 138 / 92; Pulse 74; Resp 16; Pulse Ox 99% ; ko1 07:32 Body Mass Index 46.34 (122.47 kg, 162.56 cm) cm10 07:32 Pain Scale: Adult cm10 MDM: 09:31 Patient medically screened. [facility] 09:55 Data reviewed: vital signs, nurses notes, lab test result(s), radiologic studies. [facility] 05/20 07:37 Order name: CBC with Diff; Complete Time: 09:16 kdr 05/20 07:37 Order name: CMP; Complete Time: 09:16 kdr 05/20 07:37 Order name: Lipase; Complete Time: 09:16 kdr 05/20 07:37 Order name: Test, Urine; Complete Time: 08:52 kdr 05/20 07:37 Order name: Urinalysis w/ reflexes; Complete Time: 08:52 [facility] 05/20 08:03 Order name: US Abdomen Limited; Complete Time: 08:52 [facility] 05/20 08:03 Order name: CT Abd/Pelvis - IV Contrast Only; Complete Time: 08:52 kdr 05/20 07:37 Order name: IV Saline Lock; Complete Time: 07:49 kdr 05/20 07:37 Order name: Labs collected and sent; Complete Time: 07:49 [facility] 05/20 08:14 Order name: Labs - recollect needed: recollect Lavender and green; Complete Time: 08:44 bc6 Administered Medications: 08:43 Drug: NS 0.9% IV 1000 ml Route: IV; Rate: 1 bolus; Site: right antecubital; ll1 08:44 Drug: Famotidine IVP 20 mg Route: IVP; Site: right antecubital; ll1 08:46 Drug: Ondansetron IVP 4 mg Route: IVP; Site: right antecubital; ll1 08:48 Drug: morphine IVP or IV 4 mg {Note: RASS 0, pain 9/10.} Route: IVP; Infused Over: 4 ll1 mins; Site: right antecubital; Disposition Summary: 05/20/23 09:31 Discharge Ordered Location: Home kdr Problem: new kdr Symptoms: have improved kdr Condition: Stable kdr Diagnosis - Upper abdominal pain, unspecified kdr - Other cholelithiasis without obstruction kdr - Gallbladder distention without inflammation kdr Followup: kdr - With: Private Physician - When: 2 - 3 days - Reason: If symptoms return, Further diagnostic work-up, Recheck today's complaints, Continuance of care, Re-evaluation by your physician Discharge Instructions: - Discharge Summary Sheet kdr - Abdominal Pain, Adult kdr - Colic kdr - Cholelithiasis, [id number] kdr - Choosing a Surgeon kdr - Gallbladder Eating Plan kdr Forms: - Medication Reconciliation Form kdr - Thank You Letter kdr - Prescription Opioid Use kdr Prescriptions: - Tramadol 50 mg Oral Tablet - take 1 tablet by ORAL route every 8 hours As needed as needed; 12 tablet; kdr Refills: 0, Product Selection Permitted - Pepcid 20 mg Oral Tablet - take 1 tablet by ORAL route once daily; 20 tablet; Refills: 0, Product kdr Selection Permitted - promethazine 25 mg Oral Tablet - take 1 tablet by ORAL route every 6 hours As needed; 20 tablet; Refills: 0, kdr Product Selection Permitted Signatures: Dispatcher [employer] Sundar Sesay MD MD kdr Jasiel Dwyer RN RN ll1 Alysa Kennedy 6 Selina Siddiqui RN RN cm10
--- NOTE | 2023-05-20 09:31 | ER ---
Nurse's Notes [facility] Name: Lala Dlegado Age: 27 yrs Sex: Female : 1995 Arrival Date: 05/20/2023 Time: 07:27 Bed 17 Private MD: Diagnosis: Upper abdominal pain, unspecified;Other cholelithiasis without obstruction;Gallbladder distention without inflammation Presentation: 05/20 07:32 Chief complaint: Patient states: Reports RUQ abdominal pain that radiates to her back cm10 onset 2 weeks ago but got worse today. Patient reports that the pain woke her up from her sleep. Pt reports nausea. Coronavirus screen: Vaccine status: Patient reports being unvaccinated. Client denies travel out of the [place] in the last 14 days. At this time, the client does not indicate any symptoms associated with coronavirus-19. Ebola Screen: No symptoms or risks identified at this time. Initial Sepsis Screen: Does the patient meet any 2 criteria? No. Patient's initial sepsis screen is negative. Does the patient have a suspected source of infection? No. Patient's initial sepsis screen is negative. Risk Assessment: Do you want to hurt yourself or someone else? Patient reports no desire to harm self or others. Onset of symptoms was May 20, 2023. 07:32 Method Of Arrival: Ambulatory cm10 07:32 Acuity: MURALI 3 cm10 Triage Assessment: 07:35 General: Appears in no apparent distress. uncomfortable, Behavior is calm, cooperative. cm10 Historical: - Allergies: 07:34 No Known Allergies; cm10 - Home Meds: 07:34 None [Active]; cm10 - PMHx: 07:34 None; cm10 - PSHx: 07:34 section; cm10 - Immunization history:: Adult Immunizations unknown. - Social history:: Smoking status: Patient reports the use of cigarette tobacco products, denies chronic smoking, but will smoke occasionally. Screenin:46 [facility] ED Fall Risk Assessment (Adult) History of falling in the last 3 months, ko1 including since admission No falls in past 3 months (0 pts) Confusion or Disorientation No (0 pts) Intoxicated or Sedated No (0 pts) Impaired Gait No (0 pts) Mobility Assist Device Used No (0 pt) Altered Elimination No (0 pt) Score/Fall Risk Level 0 - 2 = Low Risk Oriented to surroundings, Maintained a safe environment, Educated pt \T\ family on fall prevention, incl call for assistance when getting out of bed, Assessed \T\ reinforced patient's understanding of fall precautions, Provided non-skid footwear, Hourly rounding (assess needs \T\ fall precautionary measures) done, Used ambulatory aids as needed (educated on \T\ assisted with), Used gait belt as appropriate. Abuse screen: Denies threats or abuse. Denies injuries from another. Nutritional screening: No deficits noted. Tuberculosis screening: No symptoms or risk factors identified. Assessment: 07:46 General: Appears in no apparent distress. uncomfortable, Behavior is calm, cooperative, ko1 appropriate for age. Pain: Complains of pain in right upper quadrant. Neuro: No deficits noted. Cardiovascular: No deficits noted. Respiratory: No deficits noted. GI: Reports upper abdominal pain. : No deficits noted. EENT: No deficits noted. Derm: No deficits noted. Musculoskeletal: No deficits noted. 08:47 Reassessment: No changes from previously documented assessment. Patient and/or family ll1 updated on plan of care and expected duration. Pain level reassessed. Patient is alert, oriented x 3, equal unlabored respirations, skin warm/dry/pink. Vital Signs: 07:32 BP 143 / 100; Pulse 78; Resp 16; Temp 98.1(O); Pulse Ox 99% on R/A; Weight 122.47 kg; cm10 Height 5 ft. 4 in. ; Pain 9/10; 09:24 BP 138 / 92; Pulse 74; Resp 16; Pulse Ox 99% ; ko1 07:32 Body Mass Index 46.34 (122.47 kg, 162.56 cm) cm10 07:32 Pain Scale: Adult cm10 ED Course: 07:28 Patient arrived in ED. rg4 07:29 Sundar Nieto MD is Attending Physician. kdr 07:34 Triage completed. cm10 07:35 Arm band placed on Patient placed in an exam room, on a stretcher. cm10 07:36 Dionne Rea, LIBBY is Primary Nurse. ko1 07:46 Patient has correct armband on for positive identification. Bed in low position. Call ko1 light in reach. Side rails up X 1. Pulse ox on. NIBP on. Door closed. Noise minimized. Warm blanket given. 07:46 Test, Urine Sent. ko1 07:46 Urinalysis w/ reflexes Sent. ko1 07:48 Inserted saline lock: 20 gauge in right antecubital area, using aseptic technique. ko1 Blood collected. 07:49 CBC with Diff Sent. ko1 07:49 CMP Sent. ko1 07:49 Lipase Sent. ko1 08:23 US Abdomen Limited In Process Unspecified. EDMS 08:29 CT Abd/Pelvis - IV Contrast Only In Process Unspecified. EDMS 09:31 No provider procedures requiring assistance completed. IV discontinued, intact, ko1 bleeding controlled, No redness/swelling at site. Pressure dressing applied. Administered Medications: 08:43 Drug: NS 0.9% IV 1000 ml Route: IV; Rate: 1 bolus; Site: right antecubital; ll1 08:44 Drug: Famotidine IVP 20 mg Route: IVP; Site: right antecubital; ll1 08:46 Drug: Ondansetron IVP 4 mg Route: IVP; Site: right antecubital; ll1 08:48 Drug: morphine IVP or IV 4 mg {Note: RASS 0, pain 9/10.} Route: IVP; Infused Over: 4 ll1 mins; Site: right antecubital; Medication: 07:46 VIS not applicable for this client. ko1 Outcome: 09:31 Discharge ordered by . kdr 09:42 Discharged to home ambulatory, with family. ko1 09:42 Condition: stable 09:42 Discharge instructions given to patient, family, Instructed on discharge instructions, follow up and referral plans. medication usage, Demonstrated understanding of instructions, follow-up care, medications, Prescriptions given X 3. 09:43 Patient left the ED. ko1 Signatures: Dispatcher [employer] EDMS Sundar Nieto MD MD kdr Garcia, Rubi rg4 Jasiel Dwyer RN RN ll1 Dionne Rea RN RN ko1 Selina Siddiqui RN RN cm10
[2023-05-20 10:02] VITALS: BP 138/92; O2SAT 99
== END 2023-05-20 09:43 | disposition home or self-care (01) ==
LOC: ER 07:27
DX: K80.80 Other cholelithiasis without obstruction (principal); K82.8 Other specified diseases of gallbladder; F17.210 Nicotine dependence, cigarettes, uncomplicated
CPT/HCPCS: 85025; 81001; 36415; 81025; 83690; 80053; 74177; 76705; 96375; 96374; 99284; Q9967; J2405; J7030